=== PATIENT | male | born 1960 | race African-American/Black ===

== ENCOUNTER 2016-12-31 18:04 | Emergency (ER) | payer MEDICARE ==
[~2016-12-31 18:04] MED LIST: Iopamidol 370 76% 100 ML VIAL ONE
[2016-12-31 18:36] LABS: Blood, Urine Small (Negative); Clarity Clear (Clear); Glucose, Urine (Dipstick) Negative (Negative); Leukocyte Negative (Negative); Nitrite Negative (Negative); Protein, Urine (Dipstick) Trace mg/dL (Neg-Trace)
[2016-12-31 18:37] LABS: Bilirubin Negative (Negative)
[2016-12-31 18:46] LABS: Bacteria/HPF None Seen HPF (None Seen); Crystals/HPF 1+ AMORPH URATES HPF (Negative); RBC/HPF 0-3 HPF (0-3); Squamous Epithelial 0-3 HPF (0-3); WBC/HPF 0-3 HPF (0-3)
[2016-12-31 19:37] LABS: #Basophils 0.1 thou/uL (0.0-0.2); #Eosinphils 0.1 thou/uL (0.0-0.7); #Lymphocytes 2.1 thou/uL (1.20-3.40); #Monocytes 0.3 thou/uL (0.11-0.59); #Neutrophils 2.8 thou/uL (1.40-6.50); %Basophils 2.1 % (0.0-1.0); %Eosinophils 1.7 % (0.0-10.0); %Lymphocytes 38.8 % (21.0-51.0); %Monocytes 4.9 % (0.0-10.0); %Neutrophils 52.6 % (42.0-75.0); Hemoglobin 14.1 g/dL (14.0-18.0); Mean Corpuscular HGB CONC 35.2 g/dL (32.0-36.0); Mean Corpuscular Hemoglobin 28.7 pg (27.0-31.0); Mean Corpuscular Volume 81.4 fl (80.0-94.0); Mean Platelet Volume 7.1 fL (7.4-10.4); Platelet Count 325 thou/uL (130-400); RBC Distribution Width 12.7 % (11.5-14.5); Red Blood Cell (RBC) Count 4.92 mill/uL (4.70-6.10); White Blood Cell (WBC) Count 5.4 thou/uL (4.8-10.8)
[2016-12-31 19:46] LABS: ALT (SGPT) 96 U/L (8-55); AST (SGOT) 108 U/L (5-34); Albumin 4.1 g/dL (3.5-5.0); Alkaline Phosphatase 179 U/L (40-150); Anion Gap 18 mmol/L (10-20); BUN (Urea Nitrogen) 10 mg/dL (8.4-25.7); Bilirubin, Total 0.3 mg/dL (0.2-1.2); Calc. Creatinine Clearance 0 mL/min (70-130); Calcium 9.2 mg/dL (7.8-10.44); Carbon Dioxide 17 mmol/L (22-29); Chloride 91 mmol/L (98-107); Estimated GFR-MDRD Greater than 90; Globulin 3.7 g/dL (2.4-3.5); Glucose 71 mg/dL (70-105); Lipase 28 U/L (8-78); Potassium 4.2 mmol/L (3.5-5.1); Protein, Total 7.8 g/dL (6.0-8.3); Sodium 122 mmol/L (136-145)
[2016-12-31] MEDS ORDERED: Ketorolac Tromethamine 30 MG/ML VIAL ONE (19:50)
--- NOTE | 2016-12-31 21:34 | CT ---
CT ABDOMEN AND PELVIS WITH CONTRAST: Date: 12-31-[address] of the abdomen and pelvis was done after giving IV contrast. Oral contrast was withheld by request. Axial slices were acquired then coronal reconstructions were done. FINDINGS: The lung bases are clear. The liver and spleen are both normal in size. A subtle low density area in the medial part of the spleen on scan 19 is probably just due to artifact. The kidneys, adrenal gla nds, and pancreas appear normal. There has been a prior cholecystectomy. The abdominal aorta shows n o aneurysm. Fluid is seen in nondistended small bowel. There were no inflammatory changes around bowel or bowel wall thickening. There was no sign of diverticulitis or appendicitis. No free air or free fluid was seen. CT of the pelvis showed no pelvic masses, fluid collections or worrisome adenopathy. Some degenerati ve changes are present in the lumbar spine. IMPRESSION: Nondistended fluid filled loops of small bowel, a nonspecific finding. This could be the patient's n ormal but can also be seen in mild cases of gastroenteritis. The exam was otherwise unremarkable. POS: HOME
== END 2016-12-31 20:35 | disposition left against medical advice (07) ==
LOC: BURERS 18:04
DX: R10.12 Left upper quadrant pain (principal); R33.9 Retention of urine, unspecified; I10 Essential (primary) hypertension; K21.9 Gastro-esophageal reflux disease without esophagitis; E11.9 Type 2 diabetes mellitus without complications; J44.9 Chronic obstructive pulmonary disease, unspecified; F41.9 Anxiety disorder, unspecified; F17.210 Nicotine dependence, cigarettes, uncomplicated; F32.9 Major depressive disorder, single episode, unspecified
CPT/HCPCS: 36415; 51702; 74177; 80053; 81003; 81015; 83690; 85025; 87086; 96374; A4216; J1885

== ENCOUNTER 2017-03-07 07:44 | Emergency (ER) | payer MEDICARE ==
[2017-03-07] MEDS ORDERED: Ketorolac Tromethamine 30 MG/ML VIAL ONE (08:19)
[2017-03-07 08:43] LABS: Bilirubin Negative (Negative); Blood, Urine Small (Negative); Clarity Clear (Clear); Glucose, Urine (Dipstick) Negative (Negative); Leukocyte Negative (Negative); Nitrite Negative (Negative); Protein, Urine (Dipstick) Negative (Neg-Trace); Specific Gravity, Urine 1.015 (1.005-1.030); Urobilinogen 0.2 mg/dL (0.2-1.0); pH, Urine 6.5 (5.0-9.0)
[2017-03-07 08:51] LABS: Bacteria/HPF 1+ HPF (None Seen); RBC/HPF 0-3 HPF (0-3); Squamous Epithelial 0-3 HPF (0-3); WBC/HPF 0-3 HPF (0-3)
[2017-03-07 08:55] LABS: ALT (SGPT) 16 U/L (8-55); AST (SGOT) 14 U/L (5-34); Albumin 4.2 g/dL (3.5-5.0); Alkaline Phosphatase 149 U/L (40-150); Anion Gap 15 mmol/L (10-20); BUN (Urea Nitrogen) 5 mg/dL (8.4-25.7); Bilirubin, Total 0.3 mg/dL (0.2-1.2); Calc. Creatinine Clearance 0 mL/min (70-130); Calcium 9.5 mg/dL (7.8-10.44); Carbon Dioxide 21 mmol/L (22-29); Chloride 94 mmol/L (98-107); Estimated GFR-MDRD Greater than 90; Globulin 3.8 g/dL (2.4-3.5); Glucose 107 mg/dL (70-105); Lipase 27 U/L (8-78); Potassium 3.8 mmol/L (3.5-5.1); Sodium 126 mmol/L (136-145)
[2017-03-07 09:16] LABS: #Basophils 0.1 thou/uL (0.0-0.2); #Eosinphils 0.1 thou/uL (0.0-0.7); #Lymphocytes 2.1 thou/uL (1.20-3.40); #Monocytes 0.4 thou/uL (0.11-0.59); %Basophils 1.8 % (0.0-1.0); %Eosinophils 0.8 % (0.0-10.0); %Lymphocytes 32.2 % (21.0-51.0); %Monocytes 5.4 % (0.0-10.0); %Neutrophils 59.8 % (42.0-75.0); Hemoglobin 14.4 g/dL (14.0-18.0); Lymphocytes 28 % (21-51); MDiff Complete? YES; Mean Corpuscular HGB CONC 36.6 g/dL (32.0-36.0); Mean Corpuscular Hemoglobin 29.9 pg (27.0-31.0); Mean Corpuscular Volume 81.8 fl (80.0-94.0); Mean Platelet Volume 8.1 fL (7.4-10.4); Monocytes 10 % (0-10); Neutrophil 62 % (42-75); PLT Morphology Comment Appears Adequate; Platelet Count 333 thou/uL (130-400); RBC Distribution Width 14.4 % (11.5-14.5); RBC Morphology Normal; White Blood Cell (WBC) Count 6.6 thou/uL (4.8-10.8)
== END 2017-03-07 09:42 | disposition left against medical advice (07) ==
LOC: BURERS 07:44
DX: N39.0 Urinary tract infection, site not specified (principal); I10 Essential (primary) hypertension; K21.9 Gastro-esophageal reflux disease without esophagitis; E11.9 Type 2 diabetes mellitus without complications; J44.9 Chronic obstructive pulmonary disease, unspecified; F32.9 Major depressive disorder, single episode, unspecified; F17.210 Nicotine dependence, cigarettes, uncomplicated; Z79.899 Other long term (current) drug therapy; Z79.82 Long term (current) use of aspirin
CPT/HCPCS: 36415; 80053; 81003; 81015; 83690; 85025; 87086; 96361; 96374; J1885

== ENCOUNTER 2017-03-14 15:19 | Inpatient (IN) | payer MEDICARE ==
[2017-03-14] MEDS ORDERED: Ondansetron HCl/PF 4 MG/2 ML Vial ONE (15:45)
[2017-03-14] MEDS ORDERED: Ketorolac Tromethamine 30 MG/ML VIAL ONE (15:45)
[2017-03-14 16:27] LABS: Bilirubin Negative (Negative); Blood, Urine Trace (Negative); Clarity Clear (Clear); Glucose, Urine (Dipstick) Negative (Negative); Leukocyte Negative (Negative); Nitrite Negative (Negative); Protein, Urine (Dipstick) Negative (Neg-Trace); Urobilinogen 0.2 mg/dL (0.2-1.0)
[2017-03-14 16:28] LABS: Specific Gravity, Urine Less/Equal 1.005 (1.005-1.030)
[2017-03-14] MEDS ORDERED: Prochlorperazine 10 MG/2 ML VIAL ONE (16:45)
[2017-03-14 16:56] LABS: Bacteria/HPF None Seen HPF (None Seen); Crystals/HPF None Seen HPF (Negative); Hyaline Casts/LPF NONE SEEN LPF (0-3 Hyaline); Other Casts/LPF None Seen LPF (0-3 Hyaline); Oval Fat Bodies/HPF None Seen HPF (None Seen); RBC/HPF 0-3 HPF (0-3); Renal Epithelial None Seen HPF (0-3); Sperm/HPF None Seen HPF (None Seen); Squamous Epithelial None Seen HPF (0-3); Transitional Epithelial NONE SEEN HPF (0-3); Trichomonas/HPF None Seen HPF (None Seen); WBC/HPF None Seen HPF (0-3); Yeast-All Forms None Seen HPF (None Seen)
[2017-03-14 17:14] LABS: ALT (SGPT) 18 U/L (8-55); AST (SGOT) 20 U/L (5-34); Albumin 4.1 g/dL (3.5-5.0); Alkaline Phosphatase 167 U/L (40-150); Anion Gap 17 mmol/L (10-20); BUN (Urea Nitrogen) 5 mg/dL (8.4-25.7); Bilirubin, Total 0.5 mg/dL (0.2-1.2); Calc. Creatinine Clearance 0 mL/min (70-130); Calcium 9.4 mg/dL (7.8-10.44); Carbon Dioxide 19 mmol/L (22-29); Chloride 87 mmol/L (98-107); Estimated GFR-MDRD Greater than 90; Globulin 3.4 g/dL (2.4-3.5); Glucose 85 mg/dL (70-105); Lipase 65 U/L (8-78); Potassium 4.1 mmol/L (3.5-5.1); Protein, Total 7.5 g/dL (6.0-8.3)
[2017-03-14 17:31] LABS: Eosinophils 2 % (0-10); Lymphocytes 25 % (21-51); MDiff Complete? YES; Mean Corpuscular HGB CONC 34.9 g/dL (32.0-36.0); Mean Corpuscular Hemoglobin 28.8 pg (27.0-31.0); Mean Corpuscular Volume 82.4 fl (80.0-94.0); Mean Platelet Volume 6.8 fL (7.4-10.4); Monocytes 12 % (0-10); Neutrophil 61 % (42-75); Platelet Count 313 thou/uL (130-400); Red Blood Cell (RBC) Count 4.86 mill/uL (4.70-6.10); White Blood Cell (WBC) Count 8.1 thou/uL (4.8-10.8)
[2017-03-14 17:47] LABS: Sodium 122 mmol/L (136-145)
--- NOTE | 2017-03-14 18:23 | CT ---
CT ABDOMEN AND PELVIS WITH CONTRAST 03/14/17 Comparison is made with the 12/31/16 study. Axial slices were acquired after giving IV contrast. Coronal and sagittal reconstructions were then done. The findings on today's study are not tremendously different from before. There is some generalized mild dilation of some loops of small bowel. Some of the proximal small bowel is slightly thickened. The loops are fluid filled. The pattern and size of the loops do not suggest rolando obstruction. Ther e are no inflammatory changes around bowel loops. The colon does not show any thickening of loops or dilation. No free air or free fluid was seen. The liver, spleen, pancreas, adrenal glands, kidneys and abdominal aorta showed no acute findings. T here has been a prior cholecystectomy. CT of the pelvis showed no pelvic masses, inflammatory changes or free fluid. There was no evidence of diverticulitis or appendicitis. Degenerative changes are present in the spine. IMPRESSION: Once again, there are nonspecific findings in the small bowel which is more typical of enteritis flory n anything. There were no other findings of concern. POS: HOME
[2017-03-14] MEDS ORDERED: Ondansetron HCl/PF 4 MG/2 ML Vial SLOW IVP PRN (19:46)
[2017-03-14] MEDS ORDERED: Acetaminophen 325 MG TAB PO PRN (19:46)
[2017-03-14] MEDS: Sodium Chloride 0.9% 1,000 ML IV SCH (20:00)
[2017-03-14] MEDS ORDERED: PROVENTIL INHALER 6.7 G (200 INHALATIONS) INH PRN (20:23)
[2017-03-14] MEDS: Lorazepam 0.5 MG TAB PO SCH (21:10)
[2017-03-14] MEDS: CYPROHEPTADINE PO SCH (21:10)
[2017-03-14] MEDS: Pregabalin 50 MG CAP PO SCH (21:11)
[2017-03-15] MEDS: HYDROcodone/Acetaminophen 5/325 mg Tablet PO PRN ×3 (03:32→18:29)
[2017-03-15 05:16] LABS: #Basophils 0.1 thou/uL (0.0-0.2); #Eosinphils 0.1 thou/uL (0.0-0.7); #Lymphocytes 2.3 thou/uL (1.20-3.40); #Monocytes 0.6 thou/uL (0.11-0.59); #Neutrophils 3.5 thou/uL (1.40-6.50); %Basophils 2.1 % (0.0-1.0); %Eosinophils 1.8 % (0.0-10.0); %Lymphocytes 34.4 % (21.0-51.0); %Monocytes 8.8 % (0.0-10.0); %Neutrophils 52.9 % (42.0-75.0); Hemoglobin 13.1 g/dL (14.0-18.0); Mean Corpuscular HGB CONC 34.5 g/dL (32.0-36.0); Mean Corpuscular Hemoglobin 28.7 pg (27.0-31.0); Mean Corpuscular Volume 83.2 fl (80.0-94.0); Mean Platelet Volume 7.4 fL (7.4-10.4); Platelet Count 288 thou/uL (130-400); Red Blood Cell (RBC) Count 4.56 mill/uL (4.70-6.10); White Blood Cell (WBC) Count 6.6 thou/uL (4.8-10.8)
[2017-03-15 05:23] LABS: ALT (SGPT) 16 U/L (8-55); AST (SGOT) 16 U/L (5-34); Albumin 3.8 g/dL (3.5-5.0); Alkaline Phosphatase 146 U/L (40-150); Anion Gap 14 mmol/L (10-20); BUN (Urea Nitrogen) 6 mg/dL (8.4-25.7); Bilirubin, Total 0.7 mg/dL (0.2-1.2); Calc. Creatinine Clearance 132 mL/min (70-130); Calcium 8.7 mg/dL (7.8-10.44); Carbon Dioxide 17 mmol/L (22-29); Chloride 96 mmol/L (98-107); Estimated GFR-MDRD Greater than 90; Globulin 2.8 g/dL (2.4-3.5); Glucose 93 mg/dL (70-105); Potassium 4.1 mmol/L (3.5-5.1); Protein, Total 6.6 g/dL (6.0-8.3); Sodium 123 mmol/L (136-145)
[2017-03-15 05:26] VITALS: BMI 31.1
[2017-03-15] MEDS: Enoxaparin Sodium 30 MG/0.3 ML SYRINGE SC SCH (05:30)
[2017-03-15] MEDS: Sodium Chloride 0.9% 1,000 ML IV SCH ×2 (05:30→08:59)
--- NOTE | 2017-03-15 06:15 | HP ---
DATE OF ADMISSION: 03/14/2017 CHIEF COMPLAINT: Abdominal pain with nausea and vomiting. HISTORY OF PRESENT ILLNESS: A 56-year-old male who presented to [facility] with complaints of ongoing intractable nausea and vomiting with an inability to tolerate p.o. intake. He had watery diarrhea as well with intermittent symptoms over the last few days. He also reported to have accompanying abdominal pain located predominantly periumbilical. Subsequent lab evaluation revealed the patient to have notable hyponatremia. He attempted to intake p.o. fluids in the Emergency Department; however, notably had emesis quickly thereafter. It was thus decided to admit the patient for intravenous fluids in order to correct his electrolyte abnormalities and to treat his intractable nausea and vomiting. CT scan of the abdomen and pelvis was reassuring overall and his vitals are stable. PAST MEDICAL HISTORY: Bladder carcinoma in remission, status post chemo therapy , history of small bowel obstruction, gastroparesis, type 2 diabetes mellitus, irritable bowel syndrome, hypertension, anxiety, and depression. PAST SURGICAL HISTORY: Cholecystectomy, right shoulder rotator cuff repair, and excision of a sinus mass. SOCIAL HISTORY: Smokes half a pack of cigarettes daily, occasional marijuana use and alcohol use. FAMILY HISTORY: Includes hypertension, diabetes, and coronary artery disease. ALLERGIES: SULFA and PROMETHAZINE. CURRENT MEDICATIONS: Lyrica 50 mg p.o. t.i.d., Ativan 2 mg p.o. b.i.d., lisinopril 20 mg p.o. daily, Prozac 20 mg p.o. daily, Nexium 40 mg p.o. daily, Cyproheptadine 3 mL p.o. b.i.d., amlodipine 5 mg p.o. b.i.d prn, albuterol sulfate 2 puffs q.6 hours p.r.n. REVIEW OF SYSTEMS: General: Denies fever. Ear, Nose, and Throat: Denies sore throat, nasal drainage or congestion. Cardiovascular: Denies chest pain or palpitations. Respiratory: Denies shortness of breath or cough. Gastrointestinal: Complains of abdominal pain, nausea, vomiting and diarrhea. Denies constipation, melena or hematochezia. Genitourinary: Denies dysuria, frequency or urgency. Musculoskeletal: Denies joint swelling. Dermatologic: Denies rash. Neurologic: Denies headache. LABORATORY AND DIAGNOSTIC DATA: White blood cell count 8.1, H\T\H is 14 and 40.1, and platelets 313,000. Sodium 122, potassium 4.1, BUN 5, and creatinine is 0.81. GFR is 90. Glucose is 85, lipase 65. Normal LFTs. CT of the abdomen and pelvis showed nonspecific findings in the small bowel which is more typical enteritis than anything. No other findings of concern. PHYSICAL EXAMINATION: VITAL SIGNS: Temperature is 99.2, pulse is 81, respiratory rate is 18, and oxygen is 100% on room air. GENERAL: The patient is alert and oriented, in no acute distress. HEENT: Normocephalic and atraumatic. Extraocular muscles are intact. Sclerae and conjunctivae are normal. Pupils are equal, round, and reactive to light. NECK: Supple, with no lymphadenopathy, no meningeal signs. RESPIRATORY: Clear to auscultation bilaterally without wheezes, rales or rhonchi. CARDIAC: Regular rate and rhythm, no murmurs, rubs or gallops. ABDOMEN: Mild tenderness to palpation centrally with no rebound or guarding. SKIN: No rashes or lesions. EXTREMITIES: No clubbing, cyanosis or edema. NEUROLOGICAL: Nonfocal. Cranial nerves II-XII are grossly intact. ASSESSMENT AND PLAN: 1. Hypovolemic hyponatremia. We will continue the patient on normal saline, intravenous fluids at 100 mL an hour overnight, repeat metabolic panel in the morning. 2. Gastroenteritis with intractable nausea, vomiting. We will provide Zofran p.r.n. and advance diet as tolerated. Start probiotic for associated diarrhea. 3. Hypertension. The patient is hemodynamically stable. We will continue home blood pressure medications and follow vitals. 4. Anxiety and depression. We will continue home medications. 5. Prophylaxis. We will provide Lovenox and continue proton pump inhibitor. MTDD
[2017-03-15] MEDS: CYPROHEPTADINE PO SCH ×2 (09:00→20:56)
[2017-03-15] MEDS: Pregabalin 50 MG CAP PO SCH ×3 (09:01→20:50)
[2017-03-15] MEDS: FLUoxetine HCl 10 MG CAP PO SCH (09:01)
[2017-03-15] MEDS: Lorazepam 0.5 MG TAB PO SCH ×2 (09:02→20:49)
[2017-03-15] MEDS: Lisinopril 20 MG TAB PO SCH (09:02)
[2017-03-15] MEDS: Saccharomyces boulardii 250 MG CAP PO SCH (09:03)
[2017-03-15] MEDS: Ondansetron ODT 4 MG TAB PO PRN ×2 (11:13→18:30)
[2017-03-16] MEDS: Sodium Chloride 0.9% 1,000 ML IV SCH (00:27)
[2017-03-16] MEDS: Ondansetron ODT 4 MG TAB PO PRN (02:07)
[2017-03-16] MEDS: HYDROcodone/Acetaminophen 5/325 mg Tablet PO PRN ×2 (02:07→08:42)
[2017-03-16] MEDS: Enoxaparin Sodium 30 MG/0.3 ML SYRINGE SC SCH (05:25)
[2017-03-16 05:50] LABS: Anion Gap 12 mmol/L (10-20); BUN (Urea Nitrogen) Less than 4 mg/dL (8.4-25.7); Calcium 8.8 mg/dL (7.8-10.44); Carbon Dioxide 18 mmol/L (22-29); Chloride 107 mmol/L (98-107); Glucose 116 mg/dL (70-105); Potassium 4.3 mmol/L (3.5-5.1); Sodium 133 mmol/L (136-145)
[2017-03-16 06:24] VITALS: BP 140/88; TEMP 98.1
[2017-03-16 06:24] LABS: Calc. Creatinine Clearance 120 mL/min (70-130); Estimated GFR-MDRD Greater than 90
[2017-03-16] MEDS ORDERED: Lorazepam 0.5 MG TAB ONE (08:17)
[2017-03-16] MEDS: FLUoxetine HCl 10 MG CAP PO SCH (08:38)
[2017-03-16] MEDS: Lisinopril 20 MG TAB PO SCH (08:39)
[2017-03-16] MEDS: Lorazepam 0.5 MG TAB PO SCH (08:39)
[2017-03-16] MEDS: CYPROHEPTADINE PO SCH (08:40)
[2017-03-16] MEDS: Pregabalin 50 MG CAP PO SCH (08:40)
[2017-03-16] MEDS: Saccharomyces boulardii 250 MG CAP PO SCH (08:40)
--- NOTE | 2017-03-16 20:17 | DIS ---
DATE OF ADMISSION: 03/14/2017 DATE OF DISCHARGE: 03/16/2017 ADMISSION DIAGNOSES: Hypovolemic hyponatremia; gastroenteritis with intractable nausea, vomiting; h ypertension; anxiety; depression. DISCHARGE DIAGNOSES: Hyponatremia, resolved; gastroenteritis, resolved; hypertension; anxiety; depr ession. PROCEDURES: Patient had abdomen and pelvis CT on 03/14/2017 showing nonspecific findings in the sma ll bowel which is more typical of enteritis than anything. No other findings of concern. HOSPITAL COURSE: A 56-year-old male with a complicated past abdominal history including small-bowel obstruction, irritable bowel syndrome, gastroparesis, who presented to [facility] with symptoms of gastroenteritis including nausea, vomiting, and diarrhea. He subsequently had po or p.o. intake and was discovered to be hyponatremic, with a sodium level of 123. He was admitted f or IV fluid hydration with normal saline, which improved his sodium level up to 133. His diet was i ncreased from n.p.o. to clear liquids to regular diet, which he tolerated well with noted cessation of his GI symptoms. The patient is currently at his baseline as far as how he feels and his intake and output with a stabilized sodium level and thus will be discharged back to his home setting. Of note, this is a patient who has seen Dr. Munoz previously; however, he told the [facility] physician that his primary care provider was in [place]. DISPOSITION: The patient will be discharged to his home and may follow up with Dr. Munoz or trevor dugan or his supposed primary care provider in [place] within a week. DISCHARGE MEDICATIONS: We will continue his home medications which include lorazepam 2 mg p.o. b.i. d., lisinopril 20 mg p.o. daily, Lyrica 50 mg p.o. t.i.d., fluoxetine 20 mg p.o. daily, Nexium 40 mg p.o. daily, cyproheptadine 3 mL p.o. b.i.d., albuterol two puffs q.6 hours p.r.n. and amlodipine 5 mg p.o. b.i.d. p.r.n.
== END 2017-03-16 11:45 | disposition home or self-care (01) | DRG 641 ==
LOC: BURERS 15:19 → BURMED 18:46
PROVIDERS: ADMIT Family Medicine; ATTEND Family Medicine
DX: E87.1 Hypo-osmolality and hyponatremia (principal); I10 Essential (primary) hypertension; F41.9 Anxiety disorder, unspecified; F32.9 Major depressive disorder, single episode, unspecified; K52.9 Noninfective gastroenteritis and colitis, unspecified
CPT/HCPCS: 36415; 74177; 80048; 80053; 81003; 81015; 83690; 84300; 85025; 96361; 96374; 96375; A4216; J0780; J1650; J1885; J2405; Q0162

== ENCOUNTER 2017-03-23 11:48 | Outpatient (CLI) | payer MEDICARE ==
[2017-03-23 12:44] LABS: #Basophils 0.1 thou/uL (0.0-0.2); #Lymphocytes 2.1 thou/uL (1.20-3.40); #Monocytes 0.7 thou/uL (0.11-0.59); #Neutrophils 3.9 thou/uL (1.40-6.50); %Basophils 2.1 % (0.0-1.0); %Eosinophils 0.7 % (0.0-10.0); %Lymphocytes 30.6 % (21.0-51.0); %Monocytes 9.9 % (0.0-10.0); %Neutrophils 56.7 % (42.0-75.0); Hemoglobin 13.9 g/dL (14.0-18.0); Mean Corpuscular HGB CONC 34.1 g/dL (32.0-36.0); Mean Corpuscular Hemoglobin 28.9 pg (27.0-31.0); Mean Corpuscular Volume 84.6 fl (80.0-94.0); Platelet Count 271 thou/uL (130-400); RBC Distribution Width 14.2 % (11.5-14.5); Red Blood Cell (RBC) Count 4.82 mill/uL (4.70-6.10); White Blood Cell (WBC) Count 6.8 thou/uL (4.8-10.8)
[2017-03-23 13:07] LABS: ALT (SGPT) 14 U/L (8-55); AST (SGOT) 13 U/L (5-34); Albumin 4.5 g/dL (3.5-5.0); Alkaline Phosphatase 131 U/L (40-150); Anion Gap 14 mmol/L (10-20); BUN (Urea Nitrogen) 10 mg/dL (8.4-25.7); Bilirubin, Total 0.4 mg/dL (0.2-1.2); Calc. Creatinine Clearance 0 mL/min (70-130); Calcium 9.4 mg/dL (7.8-10.44); Carbon Dioxide 23 mmol/L (22-29); Chloride 89 mmol/L (98-107); Estimated GFR-MDRD Greater than 90; Globulin 3.4 g/dL (2.4-3.5); Glucose 91 mg/dL (70-105); Potassium 4.6 mmol/L (3.5-5.1); Protein, Total 7.9 g/dL (6.0-8.3); Sodium 121 mmol/L (136-145)
[2017-03-23 13:09] LABS: Hemoglobin A1c 5.5 % (4.0-6.0)
== END 2017-03-23 11:49 | disposition home or self-care (01) ==
LOC: HPCALD 11:48
PROVIDERS: ATTEND Family Medicine
DX: E87.1 Hypo-osmolality and hyponatremia (principal); E11.9 Type 2 diabetes mellitus without complications; I10 Essential (primary) hypertension
CPT/HCPCS: 36415; 80053; 83036; 85025

== ENCOUNTER 2017-03-29 12:58 | Emergency (ER) | payer MEDICARE | END 2017-03-29 13:26 | disposition home or self-care (01) | LOC: BURERS 12:58 | DX: R10.32 Left lower quadrant pain (principal); I10 Essential (primary) hypertension; K21.9 Gastro-esophageal reflux disease without esophagitis; E11.9 Type 2 diabetes mellitus without complications; J44.9 Chronic obstructive pulmonary disease, unspecified; F17.210 Nicotine dependence, cigarettes, uncomplicated; Z79.82 Long term (current) use of aspirin; Z79.899 Other long term (current) drug therapy | CPT/HCPCS: 99284 ==

== ENCOUNTER 2017-04-20 11:40 | Outpatient (CLI) | payer MEDICARE ==
[2017-04-20 12:55] LABS: Hemoglobin 13.9 g/dL (14.0-18.0)
[2017-04-20 13:15] LABS: Anion Gap 17 mmol/L (10-20); BUN (Urea Nitrogen) 17 mg/dL (8.4-25.7); Calc. Creatinine Clearance 0 mL/min (70-130); Calcium 9.6 mg/dL (7.8-10.44); Chloride 98 mmol/L (98-107); Estimated GFR-MDRD 85; Glucose 107 mg/dL (70-105); Potassium 4.4 mmol/L (3.5-5.1); Sodium 129 mmol/L (136-145)
[2017-04-20 13:28] LABS: Carbon Dioxide 18 mmol/L (22-29)
== END 2017-04-20 11:41 | disposition home or self-care (01) ==
LOC: BURLAB 11:40
PROVIDERS: ATTEND Internal Medicine Nephrology
DX: N18.2 Chronic kidney disease, stage 2 (mild) (principal); D63.1 Anemia in chronic kidney disease
CPT/HCPCS: 36415; 80048; 85014; 85018

== ENCOUNTER 2017-07-25 15:23 | Emergency (ER) | payer MEDICARE ==
[2017-07-25 15:56] LABS: #Basophils 0.2 thou/uL (0.0-0.2); #Lymphocytes 3.3 thou/uL (1.20-3.40); #Monocytes 1.8 thou/uL (0.11-0.59); #Neutrophils 10.2 thou/uL (1.40-6.50); %Basophils 1.3 % (0.0-1.0); %Eosinophils 0.1 % (0.0-10.0); %Lymphocytes 21.3 % (21.0-51.0); %Monocytes 11.4 % (0.0-10.0); %Neutrophils 65.9 % (42.0-75.0); Hemoglobin 15.5 g/dL (14.0-18.0); Mean Corpuscular HGB CONC 34.1 g/dL (32.0-36.0); Mean Corpuscular Hemoglobin 29.5 pg (27.0-31.0); Mean Corpuscular Volume 86.5 fl (80.0-94.0); Mean Platelet Volume 8.4 fL (7.4-10.4); Platelet Count 190 thou/uL (130-400); RBC Distribution Width 13.9 % (11.5-14.5); Red Blood Cell (RBC) Count 5.27 mill/uL (4.70-6.10); White Blood Cell (WBC) Count 15.5 thou/uL (4.8-10.8)
[2017-07-25] MEDS ORDERED: Adacel (T-DAP) 0.5 ML VIAL ONE (16:21)
[2017-07-25] MEDS ORDERED: Fluorescein Opthalmic Strip ONE (16:27)
[2017-07-25] MEDS ORDERED: Azithromycin 250 MG TAB ONE (16:58)
[2017-07-25 17:00] LABS: Potassium 5.5 mmol/L (3.5-5.1)
[2017-07-25] MEDS ORDERED: HYDROcodone/Acetaminophen 5/325 mg Tablet ONE (17:00)
[2017-07-25 17:03] LABS: ALT (SGPT) 15 U/L (8-55); AST (SGOT) 37 U/L (5-34); Albumin 4.3 g/dL (3.5-5.0); Alkaline Phosphatase 128 U/L (40-150); Anion Gap 21 mmol/L (10-20); BUN (Urea Nitrogen) 8 mg/dL (8.4-25.7); Bilirubin, Total 0.5 mg/dL (0.2-1.2); Calc. Creatinine Clearance 0 mL/min (70-130); Calcium 9.4 mg/dL (7.8-10.44); Carbon Dioxide 17 mmol/L (22-29); Chloride 101 mmol/L (98-107); Estimated GFR-MDRD 74; Globulin 4.7 g/dL (2.4-3.5); Glucose 134 mg/dL (70-105); Sodium 133 mmol/L (136-145)
[2017-07-25 17:17] LABS: Bilirubin Negative (Negative); Blood, Urine Small (Negative); Clarity Clear (Clear); Glucose, Urine (Dipstick) Negative (Negative); Leukocyte Negative (Negative); Nitrite Negative (Negative); Protein, Urine (Dipstick) Trace mg/dL (Neg-Trace); Urobilinogen 0.2 mg/dL (0.2-1.0)
[2017-07-25 17:22] LABS: RBC/HPF 0-3 HPF (0-3); Squamous Epithelial 0-3 HPF (0-3); WBC/HPF 0-3 HPF (0-3)
[2017-07-25 17:23] LABS: Bacteria/HPF Rare-Few HPF (None Seen)
[2017-07-25 17:26] LABS: Amphetamine Not Detected (NotDetected); Barbiturates Screen Not Detected (NotDetected); Benzodiazepine Screen Detected (NotDetected); Cocaine Metabolite Screen Detected (NotDetected); Medtox Control Line Valid? VALID (VALID); Methadone Not Detected (NotDetected); Methamphetamine Detected (NotDetected); Opiate Screen Not Detected (NotDetected); Oxycodone Screen Not Detected (NotDetected); Phencyclidine (PCP) Not Detected (NotDetected); THC/Cannabinoid Screen Detected (NotDetected); Tricyclic Screen Not Detected (NotDetected)
--- NOTE | 2017-07-25 21:34 | RAD ---
RIGHT KNEE THREE VIEWS 07/25/17 No fracture was seen. There may be a small joint effusion. The articular surfaces are smooth and the joint space is normal in width. IMPRESSION: Possible small joint effusion. POS: HOME
--- NOTE | 2017-07-25 21:47 | CT ---
CT OF THE BRAIN WITHOUT CONTRAST 07/25/[address] was done and compared with the 02/11/15 study. The ventricles are normal in size with no shift. No intracranial bleeding or extra-axial hematoma was seen. There is no sign of mass, stroke, or edema. The calvarium appears intact. There is no air flui d level in the sphenoid sinus. There has been no adverse change since the prior CT dated 02/11/15. IMPRESSION: No acute intracranial finding. POS: HOME
--- NOTE | 2017-07-25 21:52 | CT ---
CT OF THE FACIAL BONES 07/25/[address] of the face was done following trauma. Axial slices were acquired, then coronal and sagitta l reconstructions were done. No major fractures were evident. There are some lines at the base of the nasal bones that could be ve ry tiny nondisplaced fractures. There does appear to be some swelling of the nasal septum anteriorly. There is a little fragmentation of the anterior maxillary spine which may or may not be acute. The o rbital rims and zygomatic arches appear intact. There is no major air fluid level in any of the sinus es. There is a small soft tissue elevation in the floor of the left maxillary sinus that could be rogelio e focal mucosal thickening or even a small polyp. The retro-orbital areas appear normal. Some soft ti ssue swelling is suggested just lateral to the right orbit. IMPRESSION: Septal soft tissue swelling anteriorly. Possible minimal nasal fractures. No major facial fracture. POS: HOME
--- NOTE | 2017-07-25 21:56 | RAD ---
RIGHT HAND THREE VIEWS 07/25/17 No major acute fracture was appreciated. There is some bony fragmentation along the lateral aspect of the joint between the hamate and medial to the base of the fifth metacarpal. This appears to be due to an old injury. A small bogdan of bone is seen just lateral to the trapezium that appears old as wel l. The metacarpals and carpal bones appear intact. IMPRESSION: No acute traumatic findings. POS: HOME
--- NOTE | 2017-07-25 21:59 | RAD ---
RIGHT SHOULDER THREE VIEWS 07/25/17 Comparison is made with an 03/21/16 chest x-ray. There is fragmentation of the lateral tip of the acro mion process that is not seen on the 2016 chest x-ray. Thus there has been trauma here since that rosario e, though the margins of the bones in the vicinity suggests this is more likely old or subacute than an acute injury. There is no widening of the AC joint. There is no dislocation of the shoulder. IMPRESSION: Fragmentation of the lateral aspect of the acromion which appears to be posttraumatic in nature. This may not be acute, however. Correlate with clinical exam. POS: HOME
== END 2017-07-25 17:28 | disposition home or self-care (01) ==
LOC: BURERS 15:23
DX: S02.2XXA Fracture of nasal bones, initial encounter for closed fracture (principal); S43.101A Unspecified dislocation of right acromioclavicular joint, initial encounter; S00.83XA Contusion of other part of head, initial encounter; I10 Essential (primary) hypertension; K21.9 Gastro-esophageal reflux disease without esophagitis; K58.9 Irritable bowel syndrome, unspecified; J44.9 Chronic obstructive pulmonary disease, unspecified; E11.9 Type 2 diabetes mellitus without complications; F32.9 Major depressive disorder, single episode, unspecified; F17.210 Nicotine dependence, cigarettes, uncomplicated; X95.8XXA Assault by other firearm discharge, initial encounter
CPT/HCPCS: 70450; 70486; 80053; 80306; 81003; 81015; 85025; 90471; 90715

== ENCOUNTER 2017-08-19 13:58 | Emergency (ER) | payer MEDICARE ==
[2017-08-19] MEDS ORDERED: Nitroglycerin 50 MG/250 ML BOT 250 ML ONE (14:32)
[2017-08-19] MEDS ORDERED: Ondansetron HCl/PF 4 MG/2 ML Vial ONE (14:32)
[2017-08-19] MEDS ORDERED: Metoprolol Tartrate 5 MG/5 ML VIAL ONE ×3 (14:32→15:40)
[2017-08-19] MEDS ORDERED: Acetaminophen 500 MG TAB ONE (14:39)
[2017-08-19 14:52] LABS: ALT (SGPT) 21 U/L (8-55); AST (SGOT) 19 U/L (5-34); Albumin 4.3 g/dL (3.5-5.0); Alkaline Phosphatase 156 U/L (40-150); Anion Gap 20 mmol/L (10-20); BUN (Urea Nitrogen) 13 mg/dL (8.4-25.7); Bilirubin, Total 0.4 mg/dL (0.2-1.2); Calc. Creatinine Clearance 0 mL/min (70-130); Calcium 9.8 mg/dL (7.8-10.44); Carbon Dioxide 18 mmol/L (22-29); Chloride 99 mmol/L (98-107); Estimated GFR-MDRD 66; Globulin 4.1 g/dL (2.4-3.5); Glucose 109 mg/dL (70-105); Lipase 27 U/L (8-78); Potassium 3.7 mmol/L (3.5-5.1); Protein, Total 8.4 g/dL (6.0-8.3); Sodium 133 mmol/L (136-145)
[2017-08-19 14:53] LABS: #Basophils 0.3 thou/uL (0.0-0.2); #Lymphocytes 2.9 thou/uL (1.20-3.40); #Monocytes 1.9 thou/uL (0.11-0.59); #Neutrophils 8.9 thou/uL (1.40-6.50); %Basophils 1.9 % (0.0-1.0); %Eosinophils 0.1 % (0.0-10.0); %Lymphocytes 20.7 % (21.0-51.0); %Monocytes 13.5 % (0.0-10.0); %Neutrophils 63.8 % (42.0-75.0); Band 8 % (5-11); CKMB 0.4 ng/mL (0-6.6); Hemoglobin 15.7 g/dL (14.0-18.0); Lymphocytes 14 % (21-51); MDiff Complete? YES; Mean Corpuscular HGB CONC 35.7 g/dL (32.0-36.0); Mean Corpuscular Hemoglobin 30.1 pg (27.0-31.0); Mean Corpuscular Volume 84.2 fl (80.0-94.0); Mean Platelet Volume 8.7 fL (7.4-10.4); Monocytes 17 % (0-10); Neutrophil 60 % (42-75); Platelet Count 210 thou/uL (130-400); RBC Distribution Width 12.5 % (11.5-14.5); Red Blood Cell (RBC) Count 5.22 mill/uL (4.70-6.10); Troponin I Less than 0.010 ng/mL (< 0.028)
[2017-08-19] MEDS ORDERED: Oseltamivir 75 MG CAP ONE (15:41)
[2017-08-19] MEDS ORDERED: Fentanyl 100 MCG/2 ML VIAL ONE (15:50)
--- NOTE | 2017-08-19 17:30 | RAD ---
PORTABLE CHEST: Date: 08/19/17 An AP portable film at 1610 hours is compared with the 03/23/17 study. FINDINGS: The heart is normal in size. There is no vascular congestion, edema, or pleural effusion. The lungs a re clear. There is no definite sign of pneumonia. The medial left base is not seen as well as other s ections, however. IMPRESSION: No acute findings. POS: HOME
== END 2017-08-19 17:00 | disposition short-term general hospital (02) ==
LOC: BURERS 13:58
DX: I16.1 Hypertensive emergency (principal); J11.1 Influenza due to unidentified influenza virus with other respiratory manifestations; R07.89 Other chest pain; I10 Essential (primary) hypertension; K21.9 Gastro-esophageal reflux disease without esophagitis; K58.9 Irritable bowel syndrome, unspecified; E11.9 Type 2 diabetes mellitus without complications; J44.9 Chronic obstructive pulmonary disease, unspecified; F32.9 Major depressive disorder, single episode, unspecified; F17.210 Nicotine dependence, cigarettes, uncomplicated; Z85.51 Personal history of malignant neoplasm of bladder; Z79.899 Other long term (current) drug therapy
CPT/HCPCS: 71045; 80053; 82553; 83605; 83690; 83880; 84484; 85025; 87040; 93005; 94760; 96365; 96366; 96375; 96376; J2405; J3010

== ENCOUNTER 2017-12-06 13:26 | Emergency (ER) | payer MEDICARE ==
[2017-12-06] MEDS ORDERED: Nitroglycerin 2% Ointment 1 INCH/1 GM Packet ONE (13:44)
[2017-12-06] MEDS ORDERED: Ondansetron HCl/PF 4 MG/2 ML Vial ONE (13:44)
[2017-12-06 14:00] LABS: #Basophils 0.1 thou/uL (0.0-0.2); #Lymphocytes 2.5 thou/uL (1.20-3.40); #Monocytes 0.5 thou/uL (0.11-0.59); #Neutrophils 2.7 thou/uL (1.40-6.50); %Basophils 1.5 % (0.0-1.0); %Eosinophils 0.8 % (0.0-10.0); %Lymphocytes 42.5 % (21.0-51.0); %Neutrophils 46.1 % (42.0-75.0); Hemoglobin 13.9 g/dL (14.0-18.0); Mean Corpuscular HGB CONC 35.9 g/dL (32.0-36.0); Mean Corpuscular Hemoglobin 29.6 pg (27.0-31.0); Mean Corpuscular Volume 82.5 fl (80.0-94.0); Mean Platelet Volume 6.7 fL (7.4-10.4); Platelet Count 196 thou/uL (130-400); RBC Distribution Width 13.2 % (11.5-14.5); White Blood Cell (WBC) Count 5.8 thou/uL (4.8-10.8)
[2017-12-06 14:20] LABS: ALT (SGPT) 17 U/L (8-55); AST (SGOT) 16 U/L (5-34); Albumin 4.2 g/dL (3.5-5.0); Alkaline Phosphatase 87 U/L (40-150); Anion Gap 19 mmol/L (10-20); BUN (Urea Nitrogen) 10 mg/dL (8.4-25.7); Bilirubin, Total 0.4 mg/dL (0.2-1.2); CKMB 0.9 ng/mL (0-6.6); Calc. Creatinine Clearance 0 mL/min (70-130); Calcium 9.3 mg/dL (7.8-10.44); Carbon Dioxide 19 mmol/L (22-29); Chloride 103 mmol/L (98-107); Estimated GFR-MDRD Greater than 90; Globulin 2.8 g/dL (2.4-3.5); Glucose 95 mg/dL (70-105); Lipase 42 U/L (8-78); Potassium 3.7 mmol/L (3.5-5.1); Sodium 137 mmol/L (136-145); Troponin I Less than 0.010 ng/mL (< 0.028)
[2017-12-06] MEDS ORDERED: Famotidine In NaCl 20 mg/50 ml Premix Bag ONE (14:25)
[2017-12-06 14:44] LABS: Clarity Clear (Clear); Glucose, Urine (Dipstick) Negative (Negative); Leukocyte Negative (Negative); Nitrite Negative (Negative); Protein, Urine (Dipstick) Negative (Neg-Trace); Specific Gravity, Urine 1.015 (1.005-1.030)
[2017-12-06 14:45] LABS: Bilirubin Negative (Negative); Blood, Urine Negative (Negative); Urobilinogen 0.2 mg/dL (0.2-1.0)
[2017-12-06] MEDS ORDERED: Lorazepam 0.5 MG TAB ONE (15:22)
--- NOTE | 2017-12-06 21:07 | RAD ---
PORTABLE CHEST: 12/06/17 An AP portable film at 1340 is compared with a 08/19/17 study. The heart is normal in size. Median sternotomy sutures are seen as usual. The lungs are clear. There is no vascular congestion, edema, or pleural effusion. IMPRESSION: No acute finding. POS: HOME
== END 2017-12-06 15:31 | disposition home or self-care (01) ==
LOC: BURERS 13:26
DX: R10.13 Epigastric pain (principal); R11.2 Nausea with vomiting, unspecified; R19.7 Diarrhea, unspecified; I10 Essential (primary) hypertension; K21.9 Gastro-esophageal reflux disease without esophagitis; E11.9 Type 2 diabetes mellitus without complications; J44.9 Chronic obstructive pulmonary disease, unspecified; F32.9 Major depressive disorder, single episode, unspecified; F17.210 Nicotine dependence, cigarettes, uncomplicated
CPT/HCPCS: 36415; 71045; 80053; 81003; 82553; 83690; 84484; 85025; 93005; 94760; 96361; 96365; 96375; J2405

== ENCOUNTER 2018-03-05 05:30 | Emergency (ER) | payer MEDICARE ==
[2018-03-05] MEDS ORDERED: Mag-Al Plus 1200 MG/1200 MG/120 MG/30 ML UDCUP ONE ×2 (05:57→05:58)
[2018-03-05] MEDS ORDERED: Lidocaine Viscous Sol 2% 15 ml UD Cup ONE (05:57)
[2018-03-05] MEDS ORDERED: Ketorolac Tromethamine 60 MG/2 ML VIAL ONE (05:57)
[2018-03-05] MEDS ORDERED: Dicyclomine 20 MG TAB ONE (05:59)
[2018-03-05 06:32] LABS: ALT (SGPT) 17 U/L (8-55); AST (SGOT) 17 U/L (5-34); Albumin 4.1 g/dL (3.5-5.0); Alkaline Phosphatase 129 U/L (40-150); Anion Gap 15 mmol/L (10-20); BUN (Urea Nitrogen) 6 mg/dL (8.4-25.7); Bilirubin, Total 0.6 mg/dL (0.2-1.2); Calc. Creatinine Clearance 0 mL/min (70-130); Calcium 9.6 mg/dL (7.8-10.44); Carbon Dioxide 20 mmol/L (22-29); Chloride 101 mmol/L (98-107); Estimated GFR-MDRD Greater than 90; Globulin 3.1 g/dL (2.4-3.5); Glucose 103 mg/dL (70-105); Lipase 43 U/L (8-78); Potassium 3.7 mmol/L (3.5-5.1); Protein, Total 7.2 g/dL (6.0-8.3); Sodium 132 mmol/L (136-145)
[2018-03-05 06:34] LABS: CKMB 1.1 ng/mL (0-6.6); Troponin I Less than 0.010 ng/mL (< 0.028)
[2018-03-05] MEDS ORDERED: Ibuprofen 200 MG TAB ONE (06:37)
[2018-03-05 06:55] LABS: Hemoglobin 15.3 g/dL (14.0-18.0); Mean Corpuscular HGB CONC 36.8 g/dL (32.0-36.0); Mean Corpuscular Hemoglobin 28.3 pg (27.0-31.0); Mean Corpuscular Volume 76.9 fL (78.0-98.0); Platelet Count 208 thou/uL (130-400); RBC Distribution Width 11.4 % (11.5-14.5); Red Blood Cell (RBC) Count 5.43 mill/uL (4.70-6.10); White Blood Cell (WBC) Count 5.1 thou/uL (4.8-10.8)
[2018-03-05 07:12] LABS: Lymphocytes 54 % (21-51); MDiff Complete? YES; Monocytes 19 % (0-10); Neutrophil 27 % (42-75); PLT Morphology Comment Appears Adequate; RBC Morphology Normal
== END 2018-03-05 06:58 | disposition left against medical advice (07) ==
LOC: BURERS 05:30
DX: R10.32 Left lower quadrant pain (principal); I10 Essential (primary) hypertension; E11.9 Type 2 diabetes mellitus without complications; F32.9 Major depressive disorder, single episode, unspecified; F17.210 Nicotine dependence, cigarettes, uncomplicated; K21.9 Gastro-esophageal reflux disease without esophagitis; Z79.899 Other long term (current) drug therapy
CPT/HCPCS: 80053; 82553; 83605; 83690; 84484; 85025; 93005; J1885

== ENCOUNTER 2018-04-14 20:37 | Emergency (ER) | payer MEDICARE ==
[2018-04-14] MEDS ORDERED: Pantoprazole 40 MG VIAL ONE (21:12)
[2018-04-14] MEDS ORDERED: diphenhydrAMINE 50 MG/ML VIAL ONE (21:12)
--- NOTE | 2018-04-14 21:18 | RAD ---
PORTABLE CHEST: HISTORY: Dyspnea. COMPARISON: 12/06/2017 FINDINGS: Heart size is within normal limits. There are postop sternotomy changes. The lungs are clear of inf iltrates. There are no signs of failure. IMPRESSION: No active intrathoracic disease. POS: [facility]
[2018-04-14 21:26] LABS: ALT (SGPT) 30 U/L (8-55); AST (SGOT) 19 U/L (5-34); Albumin 4.1 g/dL (3.5-5.0); Alkaline Phosphatase 111 U/L (40-150); Anion Gap 13 mmol/L (10-20); BUN (Urea Nitrogen) 9 mg/dL (8.4-25.7); Bilirubin, Total Less than 0.2 mg/dL (0.2-1.2); Calc. Creatinine Clearance 0 mL/min (70-130); Calcium 9.3 mg/dL (7.8-10.44); Carbon Dioxide 22 mmol/L (22-29); Chloride 103 mmol/L (98-107); Estimated GFR-MDRD 65; Globulin 2.6 g/dL (2.4-3.5); Glucose 105 mg/dL (70-105); Potassium 3.7 mmol/L (3.5-5.1); Protein, Total 6.7 g/dL (6.0-8.3); Sodium 134 mmol/L (136-145)
[2018-04-14 21:28] LABS: CKMB 0.8 ng/mL (0-6.6); Troponin I Less than 0.010 ng/mL (< 0.028)
[2018-04-14 21:37] LABS: Band 3 % (5-11); Eosinophils 1 % (0-10); Hemoglobin 14.5 g/dL (14.0-18.0); Lymphocytes 47 % (21-51); MDiff Complete? YES; Mean Corpuscular HGB CONC 32.8 g/dL (32.0-36.0); Mean Corpuscular Hemoglobin 27.7 pg (27.0-31.0); Mean Corpuscular Volume 84.3 fL (78.0-98.0); Mean Platelet Volume 9.7 fL (7.4-10.4); Monocytes 7 % (0-10); Neutrophil 41 % (42-75); PLT Morphology Comment Appears Adequate; Platelet Count 208 thou/uL (130-400); RBC Distribution Width 12.8 % (11.5-14.5); RBC Morphology Normal; Red Blood Cell (RBC) Count 5.23 mill/uL (4.70-6.10); White Blood Cell (WBC) Count 8.2 thou/uL (4.8-10.8)
== END 2018-04-14 21:42 | disposition home or self-care (01) ==
LOC: BURERS 20:37
DX: F41.9 Anxiety disorder, unspecified (principal); I10 Essential (primary) hypertension; K21.9 Gastro-esophageal reflux disease without esophagitis; E11.9 Type 2 diabetes mellitus without complications; J44.9 Chronic obstructive pulmonary disease, unspecified; F32.9 Major depressive disorder, single episode, unspecified; F17.210 Nicotine dependence, cigarettes, uncomplicated; Z79.899 Other long term (current) drug therapy
CPT/HCPCS: 71045; 80053; 82553; 83880; 84484; 85025; 85379; 93005; 96374; 96375; C9113; J1200

== ENCOUNTER 2019-01-26 19:27 | Emergency (ER) | payer MEDICARE ==
[2019-01-26 20:29] LABS: Hemoglobin 13.7 g/dL (14.0-18.0); Mean Corpuscular HGB CONC 33.5 g/dL (32.0-36.0); Mean Corpuscular Hemoglobin 29.4 pg (27.0-31.0); Mean Corpuscular Volume 87.9 fL (78.0-98.0); Mean Platelet Volume 6.6 fL (7.4-10.4); Platelet Count 224 thou/uL (130-400); RBC Distribution Width 12.4 % (11.5-14.5); Red Blood Cell (RBC) Count 4.66 mill/uL (4.70-6.10)
[2019-01-26] MEDS ORDERED: Ondansetron PF 4 MG/2 ML Vial ONE (20:38)
[2019-01-26 20:40] LABS: ALT (SGPT) 13 U/L (8-55); AST (SGOT) 15 U/L (5-34); Albumin 4.2 g/dL (3.5-5.0); Alkaline Phosphatase 94 U/L (40-150); Anion Gap 16 mmol/L (10-20); BUN (Urea Nitrogen) 13 mg/dL (8.4-25.7); Bilirubin, Total 0.4 mg/dL (0.2-1.2); Calc. Creatinine Clearance 0 mL/min (70-130); Calcium 9.3 mg/dL (7.8-10.44); Carbon Dioxide 23 mmol/L (22-29); Chloride 94 mmol/L (98-107); Estimated GFR-MDRD Greater than 90; Globulin 2.7 g/dL (2.4-3.5); Glucose 91 mg/dL (70-105); Lipase 94 U/L (8-78); Potassium 3.5 mmol/L (3.5-5.1); Protein, Total 6.9 g/dL (6.0-8.3); Sodium 129 mmol/L (136-145)
[2019-01-26 20:47] LABS: Eosinophils 3 % (0-10); Lymphocytes 41 % (21-51); MDiff Complete? YES; Monocytes 13 % (0-10); Neutrophil 43 % (42-75); Platelet Morphology Comment Appears Adequate; RBC Morphology Normal
[2019-01-26] MEDS ORDERED: Fentanyl 100 MCG/2 ML VIAL ONE (20:53)
--- NOTE | 2019-01-26 21:24 | RAD ---
PORTABLE CHEST: Date: 01-26-19 An AP portable film at 2000 is compared with a 04-14-18 study. FINDINGS: The heart is normal in size and the lungs are clear. No acute infiltrate, effusion, or vascular conge stion was seen. A faint density near the left second anterior rib may be due to overlapping structure s. The mediastinum appears normal. IMPRESSION: No acute finding. POS: HOME
== END 2019-01-26 21:55 | disposition home or self-care (01) ==
LOC: BURERS 19:27
DX: K85.90 Acute pancreatitis without necrosis or infection, unspecified (principal); I10 Essential (primary) hypertension; K21.9 Gastro-esophageal reflux disease without esophagitis; E11.9 Type 2 diabetes mellitus without complications; J44.9 Chronic obstructive pulmonary disease, unspecified; F32.9 Major depressive disorder, single episode, unspecified; F17.210 Nicotine dependence, cigarettes, uncomplicated
CPT/HCPCS: 36415; 71045; 80053; 83690; 83880; 84484; 85025; 93005; 94760; 96361; 96374; 96375; J2405; J3010

== ENCOUNTER 2019-04-03 19:07 | Emergency (ER) | payer MEDICARE ==
[2019-04-03 19:52] LABS: ALT (SGPT) 9 U/L (8-55); AST (SGOT) 15 U/L (5-34); Albumin 4.3 g/dL (3.5-5.0); Alkaline Phosphatase 109 U/L (40-150); Anion Gap 15 mmol/L (10-20); BUN (Urea Nitrogen) 8 mg/dL (8.4-25.7); Bilirubin, Total 0.2 mg/dL (0.2-1.2); Calc. Creatinine Clearance 0 mL/min (70-130); Calcium 9.9 mg/dL (7.8-10.44); Carbon Dioxide 23 mmol/L (22-29); Chloride 98 mmol/L (98-107); Estimated GFR-MDRD 80; Globulin 2.8 g/dL (2.4-3.5); Glucose 96 mg/dL (70-105); Lipase 33 U/L (8-78); Potassium 3.9 mmol/L (3.5-5.1); Protein, Total 7.1 g/dL (6.0-8.3); Sodium 132 mmol/L (136-145)
[2019-04-03 20:04] LABS: Hemoglobin 12.8 g/dL (14.0-18.0); Mean Corpuscular HGB CONC 33.7 g/dL (32.0-36.0); Mean Corpuscular Hemoglobin 29.5 pg (27.0-31.0); Mean Corpuscular Volume 87.3 fL (78.0-98.0); Mean Platelet Volume 6.7 fL (7.4-10.4); Platelet Count 265 thou/uL (130-400); RBC Distribution Width 13.1 % (11.5-14.5); Red Blood Cell (RBC) Count 4.35 mill/uL (4.70-6.10)
[2019-04-03 20:09] LABS: Lymphocytes 38 % (21-51); MDiff Complete? YES; Monocytes 12 % (0-10); Neutrophil 50 % (42-75); Platelet Morphology Comment Appears Adequate; RBC Morphology Normal
[2019-04-03] MEDS ORDERED: Lorazepam 0.5 MG TAB ONE ×2 (20:14→20:17)
[2019-04-03] MEDS ORDERED: Mag-Al Plus 1200 MG/1200 MG/120 MG/30 ML UDCUP ONE (20:15)
[2019-04-03] MEDS ORDERED: Lidocaine Viscous Sol 2% 15 ml UD Cup ONE (20:15)
[2019-04-03] MEDS ORDERED: Acetaminophen 500 MG TAB ONE (20:15)
[2019-04-03] MEDS ORDERED: Famotidine 20 MG TAB ONE (20:15)
--- NOTE | 2019-04-04 07:17 | RAD ---
PORTABLE CHEST: Date: 04/03/19 An AP portable film at 1922 hours is compared with the 01/26/19 study. The heart is normal in size and the lungs are clear. No infiltrate or effusion seen. No vascular yodit estion or edema. Mediastinum appears normal. IMPRESSION: No acute thoracic findings. POS: HOME
== END 2019-04-03 20:23 | disposition home or self-care (01) ==
LOC: BURERS 19:07
DX: R07.89 Other chest pain (principal); I10 Essential (primary) hypertension; K21.9 Gastro-esophageal reflux disease without esophagitis; E11.9 Type 2 diabetes mellitus without complications; J44.9 Chronic obstructive pulmonary disease, unspecified; F32.9 Major depressive disorder, single episode, unspecified; F17.210 Nicotine dependence, cigarettes, uncomplicated
CPT/HCPCS: 71045; 80053; 83690; 84484; 85025; 93005

== ENCOUNTER 2019-05-27 08:56 | Emergency (ER) | payer MEDICARE ==
[2019-05-27 09:22] LABS: #Basophils 0.1 thou/uL (0.0-0.2); #Eosinphils 0.1 thou/uL (0.0-0.7); #Lymphocytes 2.3 thou/uL (1.20-3.40); #Monocytes 0.9 thou/uL (0.11-0.59); #Neutrophils 4.3 thou/uL (1.40-6.50); %Basophils 1.6 % (0.0-1.0); %Eosinophils 0.8 % (0.0-10.0); %Lymphocytes 29.4 % (21.0-51.0); %Monocytes 11.6 % (0.0-10.0); %Neutrophils 56.6 % (42.0-75.0); Hemoglobin 16.9 g/dL (14.0-18.0); Mean Corpuscular HGB CONC 32.1 g/dL (32.0-36.0); Mean Corpuscular Hemoglobin 29.6 pg (27.0-31.0); Mean Platelet Volume 8.5 fL (7.4-10.4); Platelet Count 292 thou/uL (130-400); RBC Distribution Width 12.8 % (11.5-14.5); White Blood Cell (WBC) Count 7.7 thou/uL (4.8-10.8)
[2019-05-27 09:32] LABS: PTT 25.2 SEC (22.9-36.1); Prothrombin Time 12.9 SEC (12.0-14.7)
[2019-05-27] MEDS ORDERED: Pantoprazole 40 MG VIAL ONE ×2 (09:38→09:39)
[2019-05-27] MEDS ORDERED: Lidocaine Viscous Sol 2% 15 ml UD Cup ONE (09:38)
[2019-05-27] MEDS ORDERED: Milk Of Magnesia 30 ML UDCUP ONE (09:38)
[2019-05-27 09:43] LABS: ALT (SGPT) 13 U/L (8-55); AST (SGOT) 16 U/L (5-34); Albumin 4.4 g/dL (3.5-5.0); Alkaline Phosphatase 107 U/L (40-110); Anion Gap 17 mmol/L (10-20); BUN (Urea Nitrogen) 11 mg/dL (8.4-25.7); Bilirubin, Total 0.4 mg/dL (0.2-1.2); Calc. Creatinine Clearance 0 mL/min (70-130); Calcium 9.6 mg/dL (7.8-10.44); Carbon Dioxide 21 mmol/L (22-29); Chloride 102 mmol/L (98-107); Estimated GFR-MDRD Greater than 90; Globulin 3.3 g/dL (2.4-3.5); Glucose 104 mg/dL (70-105); Lipase 27 U/L (8-78); Potassium 3.9 mmol/L (3.5-5.1); Protein, Total 7.7 g/dL (6.0-8.3); Sodium 136 mmol/L (136-145)
[2019-05-27] MEDS ORDERED: Tranexamic Acid 1,000 MG/10 ML VIAL ONE (10:40)
[2019-05-27] MEDS ORDERED: Fentanyl 100 MCG/2 ML VIAL ONE (11:21)
[2019-05-27] MEDS ORDERED: Iopamidol 370 76% 100 ML VIAL ONE (14:03)
--- NOTE | 2019-05-27 15:35 | CT ---
CT AORTIC DISSECTION 05/27/[address] angio of the chest and abdomen was performed to display the entire aorta from top to bottom. MIP reconstructions were done afterwards in various planes. There is no sign of aortic dissection or aneurysm at any point on the study. Some calcification is pr obably present in the patient's LAD. It is difficult to assess filling of the right coronary artery. The celiac, superior mesenteric, and inferior mesenteric arteries all fill adequately. There is symme tric filling of the renal arteries. Both iliac arteries fill easily. CT of the thorax otherwise shows no sign of mass, acute infiltrate, or effusion. There is no sign of mediastinal mass or adenopathy. The abdominal CT showed no space occupying disease in the liver, spleen, pancreas, adrenal glands or kidneys. There is no obstruction of either kidney. A prior cholecystectomy is noted. The bowel shows no distention. There is no free air or free fluid in the area scanned. Degenerative changes are prese nt in the patient's lumbar spine. IMPRESSION: 1. No evidence of aortic aneurysm or dissection. 2. Incidental finding of a small hiatal hernia. 3. No obvious bowel abnormalities. Findings discussed with Dr. Doe at 1007 on 05/27/19. POS: HOME
== END 2019-05-27 11:49 | disposition short-term general hospital (02) ==
LOC: BURERS 08:56
DX: K92.2 Gastrointestinal hemorrhage, unspecified (principal); I10 Essential (primary) hypertension; E11.9 Type 2 diabetes mellitus without complications; F32.9 Major depressive disorder, single episode, unspecified; J44.9 Chronic obstructive pulmonary disease, unspecified; Z79.891 Long term (current) use of opiate analgesic; Z79.899 Other long term (current) drug therapy
CPT/HCPCS: 36415; 36416; 71275; 72191; 74175; 80053; 82274; 83690; 84484; 85025; 85610; 85730; 93005; 94760; 96374; 96375; C9113; J3010; Q9967

== ENCOUNTER 2020-01-12 16:28 | Emergency (ER) | payer MEDICARE, OTHER ==
[2020-01-12] MEDS ORDERED: hydrOXYzine 25 MG TAB ONE (17:04)
[2020-01-12] MEDS ORDERED: Lidocaine 1% w/Epinephrine 1:100K 20 ML VIAL ONE (17:43)
[2020-01-12 17:58] LABS: Hemoglobin 12.4 g/dL (14.0-18.0); Mean Corpuscular Hemoglobin 30.1 pg (27.0-31.0); Mean Corpuscular Volume 94.3 fL (78.0-98.0); Platelet Count 259 thou/uL (130-400); RBC Distribution Width 13.3 % (11.5-14.5); Red Blood Cell (RBC) Count 4.13 mill/uL (4.70-6.10); White Blood Cell (WBC) Count 8.8 thou/uL (4.8-10.8)
[2020-01-12 17:59] LABS: ALT (SGPT) 32 U/L (8-55); AST (SGOT) 97 U/L (5-34); Albumin 4.3 g/dL (3.5-5.0); Alkaline Phosphatase 82 U/L (40-110); Anion Gap 15 mmol/L (10-20); BUN (Urea Nitrogen) 11 mg/dL (8.4-25.7); Bilirubin, Total 0.3 mg/dL (0.2-1.2); Calc. Creatinine Clearance 0 mL/min (70-130); Calcium 9.8 mg/dL (7.8-10.44); Carbon Dioxide 24 mmol/L (22-29); Chloride 103 mmol/L (98-107); Estimated GFR-MDRD 74; Globulin 3.2 g/dL (2.4-3.5); Glucose 88 mg/dL (70-105); Lipase 43 U/L (8-78); Potassium 4.4 mmol/L (3.5-5.1); Protein, Total 7.5 g/dL (6.0-8.3); Sodium 138 mmol/L (136-145)
[2020-01-12 18:02] LABS: Band 11 % (5-11); Eosinophils 1 % (0-10); Lymphocytes 24 % (21-51); MDiff Complete? YES; Monocytes 17 % (0-10); Neutrophil 47 % (42-75)
[2020-01-12] MEDS ORDERED: Bacitracin 1 PK ONE (18:08)
[2020-01-12] MEDS ORDERED: Aspirin Chewable 81 MG TAB ONE (18:46)
--- NOTE | 2020-01-13 09:27 | RAD ---
PORTABLE CHEST: DATE: 01/12/2020. FINDINGS: An AP portable film at 1734 is compared with a 04/03/2019 study. The heart is normal in size and the lungs are clear. No infiltrate, effusion, or vascular congestion was seen. IMPRESSION: No acute thoracic finding. POS: HOME
== END 2020-01-12 17:30 | disposition home or self-care (01) ==
LOC: BURERS 16:28
DX: L02.31 Cutaneous abscess of buttock (principal); L03.317 Cellulitis of buttock; B34.9 Viral infection, unspecified; I10 Essential (primary) hypertension; K21.9 Gastro-esophageal reflux disease without esophagitis; E11.9 Type 2 diabetes mellitus without complications; J44.9 Chronic obstructive pulmonary disease, unspecified; F32.9 Major depressive disorder, single episode, unspecified; Z20.828 Contact with and (suspected) exposure to other viral communicable diseases
CPT/HCPCS: 10080; 71045; 80053; 83605; 83690; 83880; 84484; 85025; 93005; 96360

== ENCOUNTER 2020-06-09 15:16 | Emergency (ER) | payer MEDICARE | END 2020-06-09 15:45 | disposition left against medical advice (07) | LOC: BURERS 15:16 | DX: Z53.21 Procedure and treatment not carried out due to patient leaving prior to being seen by health care provider (principal) ==

== ENCOUNTER 2020-08-04 10:45 | Emergency (ER) | payer MEDICARE ==
[2020-08-04] MEDS ORDERED: Lorazepam 2 MG/ML VIAL ONE (11:12)
[2020-08-04 11:45] LABS: ALT (SGPT) 19 U/L (8-55); AST (SGOT) 28 U/L (5-34); Albumin 4.5 g/dL (3.4-4.8); Alkaline Phosphatase 137 U/L (40-110); Anion Gap 29 mmol/L (10-20); BUN (Urea Nitrogen) 7 mg/dL (8.4-25.7); Bilirubin, Total 0.3 mg/dL (0.2-1.2); Calc. Creatinine Clearance 0 mL/min (70-130); Calcium 9.3 mg/dL (7.8-10.44); Carbon Dioxide 11 mmol/L (23-31); Chloride 93 mmol/L (98-107); Globulin 3.6 g/dL (2.4-3.5); Glucose 102 mg/dL (80-115); Lipase 23 U/L (8-78); Potassium 4.7 mmol/L (3.5-5.1); Protein, Total 8.1 g/dL (5.8-8.1); Sodium 128 mmol/L (136-145)
[2020-08-04 11:57] LABS: #Basophils 0.1 thou/uL (0.0-0.2); #Monocytes 0.6 thou/uL (0.11-0.59); #Neutrophils 2.6 thou/uL (1.40-6.50); %Basophils 1.5 % (0.0-1.0); %Eosinophils 0.5 % (0.0-10.0); %Monocytes 14.4 % (0.0-10.0); %Neutrophils 59.6 % (42.0-75.0); Hemoglobin 15.9 g/dL (14.0-18.0); Mean Corpuscular HGB CONC 32.5 g/dL (32.0-36.0); Mean Corpuscular Hemoglobin 30.1 pg (27.0-31.0); Mean Corpuscular Volume 92.6 fL (78.0-98.0); Mean Platelet Volume 8.6 fL (7.4-10.4); Platelet Count 182 thou/uL (130-400); RBC Distribution Width 12.2 % (11.5-14.5); Red Blood Cell (RBC) Count 5.28 mill/uL (4.70-6.10); White Blood Cell (WBC) Count 4.4 thou/uL (4.8-10.8)
[2020-08-04 12:17] LABS: Bilirubin Negative (Negative); Blood, Urine Small (Negative); Clarity Slightly Cloudy (Clear); Glucose, Urine (Dipstick) Negative (Negative); Ketone, Urine Trace mg/dL (Negative); Leukocyte Negative (Negative); Nitrite Negative (Negative); Protein, Urine (Dipstick) 100 mg/dL (Neg-Trace); Urobilinogen 0.2 mg/dL (Less than 2); pH, Urine 5.5 (5.0-9.0)
[2020-08-04] MEDS ORDERED: Pantoprazole 40 MG VIAL ONE (12:21)
[2020-08-04] MEDS ORDERED: levETIRAcetam 500 MG/5 ML VIAL ONE (12:21)
[2020-08-04 12:24] LABS: Bacteria/HPF None Seen HPF (None Seen); RBC/HPF 0-3 HPF (0-3); Squamous Epithelial 0-3 HPF (0-3); WBC/HPF 0-3 HPF (0-3)
[2020-08-04 12:26] LABS: Amphetamine Not Detected (NotDetected); Barbiturates Screen Not Detected (NotDetected); Benzodiazepine Screen Detected (NotDetected); Cocaine Metabolite Screen Detected (NotDetected); Medtox Control Line Valid? VALID (VALID); Methadone Not Detected (NotDetected); Methamphetamine Not Detected (NotDetected); Opiate Screen Not Detected (NotDetected); Oxycodone Screen Not Detected (NotDetected); Phencyclidine (PCP) Not Detected (NotDetected); THC/Cannabinoid Screen Detected (NotDetected); Tricyclic Screen Not Detected (NotDetected)
--- NOTE | 2020-08-04 14:30 | RAD ---
PORTABLE CHEST: DATE: 08/04/2020. FINDINGS: An AP portable film at 1114 is compared with a 01/12/2020 study. The heart is normal in size and the lungs are clear. No acute infiltrate or effusion was seen. Ther e is no vascular congestion or edema. IMPRESSION: No acute thoracic finding. POS: HOME
--- NOTE | 2020-08-04 14:34 | CT ---
CT AB D AND PELVIS WITH CONTRAST: DATE: 08/04/2020. FINDINGS: The lung bases are clear. There is a focal area of pleural thickening on the left that is probably o f no current concern. The liver, spleen, pancreas, adrenal glands, kidneys, and abdominal aorta show ed no acute findings. There has been a prior cholecystectomy. The proximal stomach is somewhat thickened in terms of its wall thickness compared to the distal port ion. Gastritis might be considered. The bowel showed no overt inflammatory changes, dilation, or st reaking around it. No free air or free fluid was seen. The aorta is normal in caliber but calcified . CT of the pelvis shows no pelvic masses, fluid collections, or inflammatory changes. Some degenerati ve changes are seen in the lumbar spine. IMPRESSION: Mild thickening of the wall of the proximal stomach. Gastritis might be a consideration. Findings discussed with Dr. Doe at 1302 on 08/04/2020. CODE CR POS: HOME
[2020-08-04] MEDS ORDERED: Lidocaine Viscous Sol 2% 15 ml UD Cup ONE (15:00)
[2020-08-04] MEDS ORDERED: Mag-Al Plus 1200 MG/1200 MG/120 MG/30 ML UDCUP ONE (15:00)
[2020-08-04] MEDS ORDERED: Acetaminophen 500 MG TAB ONE (17:31)
== END 2020-08-04 17:55 | disposition short-term general hospital (02) ==
LOC: BURERS 10:45
DX: R56.9 Unspecified convulsions (principal); K29.00 Acute gastritis without bleeding; E87.1 Hypo-osmolality and hyponatremia; Z79.899 Other long term (current) drug therapy; I10 Essential (primary) hypertension; E78.00 Pure hypercholesterolemia, unspecified; E11.9 Type 2 diabetes mellitus without complications; F17.210 Nicotine dependence, cigarettes, uncomplicated
CPT/HCPCS: 36415; 71045; 74177; 80053; 80306; 80307; 81003; 81015; 83690; 84484; 85025; 93005; 94760; 96365; 96375; C9113; J1953; J2060; Q9967

== ENCOUNTER 2020-11-29 20:28 | Emergency (ER) | payer MEDICARE ==
[2020-11-29] MEDS ORDERED: EPINEPHrine 1 MG/ML AMP ONE (20:35)
[2020-11-29] MEDS ORDERED: diphenhydrAMINE 50 MG/ML VIAL ONE (20:48)
[2020-11-29] MEDS ORDERED: methylPREDNISolone Sod Succ/PF 125 MG/2 ML VIAL ONE (20:49)
[2020-11-29] MEDS ORDERED: Famotidine In NaCl 20 mg/50 ml Premix Bag ONE (20:49)
[2020-11-29] MEDS ORDERED: Tranexamic Acid 1,000 MG/10 ML VIAL ONE (20:55)
[2020-11-29] MEDS ORDERED: Ketamine 50 MG/ML (10ML VIAL) ONE (20:58)
[2020-11-29 21:15] LABS: ALT (SGPT) 12 U/L (8-55); AST (SGOT) 11 U/L (5-34); Albumin 4.6 g/dL (3.4-4.8); Alkaline Phosphatase 93 U/L (40-110); Anion Gap 18 mmol/L (10-20); BUN (Urea Nitrogen) 7 mg/dL (8.4-25.7); Bilirubin, Total 0.5 mg/dL (0.2-1.2); Calc. Creatinine Clearance 0 mL/min (70-130); Calcium 9.8 mg/dL (7.8-10.44); Carbon Dioxide 22 mmol/L (23-31); Chloride 93 mmol/L (98-107); Globulin 3.6 g/dL (2.4-3.5); Glucose 120 mg/dL (80-115); Protein, Total 8.2 g/dL (5.8-8.1); Sodium 129 mmol/L (136-145)
[2020-11-29 21:29] LABS: Band 3 % (5-11); Hemoglobin 15.9 g/dL (14.0-18.0); Lymphocytes 23 % (21-51); MDiff Complete? YES; Mean Corpuscular HGB CONC 33.5 g/dL (32.0-36.0); Mean Corpuscular Hemoglobin 29.2 pg (27.0-31.0); Mean Corpuscular Volume 87.2 fL (78.0-98.0); Mean Platelet Volume 7.5 fL (7.4-10.4); Monocytes 23 % (0-10); Neutrophil 46 % (42-75); Platelet Count 328 thou/uL (130-400); RBC Distribution Width 12.1 % (11.5-14.5); Reactive Lymphocytes 5 % (0-10); Red Blood Cell (RBC) Count 5.44 mill/uL (4.70-6.10); White Blood Cell (WBC) Count 7.9 thou/uL (4.8-10.8)
[2020-11-29] MEDS ORDERED: Fentanyl 100 MCG/2 ML VIAL ONE (21:38)
[2020-11-29] MEDS ORDERED: Midazolam HCl 2 mg/2 ml Vial ONE (21:44)
[2020-11-29] MEDS ORDERED: Ondansetron PF 4 MG/2 ML Vial ONE (21:59)
== END 2020-11-29 22:18 | disposition short-term general hospital (02) ==
LOC: BURERS 20:28
DX: T78.3XXA Angioneurotic edema, initial encounter (principal); I10 Essential (primary) hypertension; E78.00 Pure hypercholesterolemia, unspecified; E11.9 Type 2 diabetes mellitus without complications; F17.210 Nicotine dependence, cigarettes, uncomplicated; Z79.899 Other long term (current) drug therapy; Z79.84 Long term (current) use of oral hypoglycemic drugs
CPT/HCPCS: 80053; 84484; 85025; 93005; 94760; 96365; 96372; 96375; 96376; 99292; J0171; J1200; J2250; J2405; J2930; J3010

== ENCOUNTER 2021-01-29 13:26 | Emergency (ER) | payer MEDICARE ==
[2021-01-29 14:47] LABS: Hemoglobin 17.1 g/dL (14.0-18.0); Mean Corpuscular HGB CONC 34.7 g/dL (32.0-36.0); Mean Corpuscular Hemoglobin 29.5 pg (27.0-31.0); Platelet Count 282 thou/uL (130-400); RBC Distribution Width 11.8 % (11.5-14.5); Red Blood Cell (RBC) Count 5.79 mill/uL (4.70-6.10); White Blood Cell (WBC) Count 13.3 thou/uL (4.8-10.8)
[2021-01-29 15:00] LABS: ALT (SGPT) 22 U/L (8-55); AST (SGOT) 22 U/L (5-34); Albumin 5.4 g/dL (3.4-4.8); Alkaline Phosphatase 106 U/L (40-110); Anion Gap 31 mmol/L (10-20); BUN (Urea Nitrogen) 22 mg/dL (8.4-25.7); Bilirubin, Total 0.5 mg/dL (0.2-1.2); Calc. Creatinine Clearance 0 mL/min (70-130); Calcium 11.1 mg/dL (7.8-10.44); Carbon Dioxide 19 mmol/L (23-31); Chloride 82 mmol/L (98-107); Globulin 3.9 g/dL (2.4-3.5); Glucose 137 mg/dL (80-115); Lipase 17 U/L (8-78); Potassium 3.8 mmol/L (3.5-5.1); Protein, Total 9.3 g/dL (5.8-8.1); Sodium 128 mmol/L (136-145)
[2021-01-29 15:04] LABS: Bilirubin Small (Negative); Blood, Urine Small (Negative); Clarity Clear (Clear); Glucose, Urine (Dipstick) Negative (Negative); Ketone, Urine 80 mg/dL (Negative); Leukocyte Negative (Negative); Nitrite Negative (Negative); Protein, Urine (Dipstick) 100 mg/dL (Neg-Trace); Urobilinogen 0.2 mg/dL (Less than 2)
[2021-01-29 15:11] LABS: Specific Gravity, Urine 1.024 (1.002-1.036)
[2021-01-29 15:11] LABS: Band 4 % (5-11); Lymphocytes 15 % (21-51); MDiff Complete? YES; Monocytes 8 % (0-10); Neutrophil 73 % (42-75)
[2021-01-29 15:16] LABS: RBC/HPF 0-3 HPF (0-3)
[2021-01-29 15:17] LABS: Bacteria/HPF None Seen HPF (None Seen); Renal Epithelial 0-3 HPF (None Seen); Squamous Epithelial 0-3 HPF (0-3); Transitional Epithelial 0-3 HPF (None Seen)
[2021-01-29 15:18] LABS: Cocaine Metabolite Screen Detected (NotDetected); Methamphetamine Not Detected (NotDetected); Opiate Screen Not Detected (NotDetected); Phencyclidine (PCP) Not Detected (NotDetected); THC/Cannabinoid Screen Detected (NotDetected)
[2021-01-29 15:19] LABS: Amphetamine Not Detected (NotDetected); Barbiturates Screen Not Detected (NotDetected); Benzodiazepine Screen Detected (NotDetected); Medtox Control Line Valid? VALID (VALID); Methadone Not Detected (NotDetected); Oxycodone Screen Not Detected (NotDetected); Tricyclic Screen Not Detected (NotDetected)
[2021-01-29] MEDS ORDERED: Morphine 4 MG/ML VIAL ONE (16:34)
== END 2021-01-29 16:49 | disposition home or self-care (01) ==
LOC: BURERS 13:26
DX: R10.13 Epigastric pain (principal); R11.2 Nausea with vomiting, unspecified; R63.0 Anorexia; I10 Essential (primary) hypertension; E11.9 Type 2 diabetes mellitus without complications; E78.00 Pure hypercholesterolemia, unspecified; F17.210 Nicotine dependence, cigarettes, uncomplicated; Z79.899 Other long term (current) drug therapy
CPT/HCPCS: 36415; 74176; 80053; 80306; 81003; 81015; 83690; 85025; 96374; J2270

== ENCOUNTER 2021-02-01 16:55 | Emergency (ER) | payer MEDICARE | END 2021-02-01 17:27 | disposition left against medical advice (07) | LOC: BURERS 16:55 | DX: R06.00 Dyspnea, unspecified (principal); R00.0 Tachycardia, unspecified; E11.9 Type 2 diabetes mellitus without complications; E78.00 Pure hypercholesterolemia, unspecified; I10 Essential (primary) hypertension; Z79.899 Other long term (current) drug therapy ==

== ENCOUNTER 2021-02-16 19:21 | Observation (INO) | payer MEDICARE ==
[2021-02-16] MEDS ORDERED: Famotidine In NaCl 20 mg/50 ml Premix Bag ONE (20:10)
[2021-02-16] MEDS ORDERED: Ondansetron PF 4 MG/2 ML Vial ONE ×2 (20:10→20:47)
[2021-02-16 20:17] LABS: Bilirubin Small (Negative); Blood, Urine Negative (Negative); Clarity Cloudy (Clear); Glucose, Urine (Dipstick) Negative (Negative); Ketone, Urine 40 mg/dL (Negative); Leukocyte Negative (Negative); Nitrite Negative (Negative); Protein, Urine (Dipstick) Trace mg/dL (Neg-Trace); Specific Gravity, Urine 1.025 (1.005-1.030)
[2021-02-16 20:20] LABS: #Basophils 0.1 thou/uL (0.0-0.2); #Lymphocytes 2.4 thou/uL (1.20-3.40); #Monocytes 0.3 thou/uL (0.11-0.59); #Neutrophils 2.7 thou/uL (1.40-6.50); %Basophils 1.9 % (0.0-1.0); %Eosinophils 0.4 % (0.0-10.0); %Lymphocytes 42.8 % (21.0-51.0); %Monocytes 5.2 % (0.0-10.0); %Neutrophils 49.7 % (42.0-75.0); Hemoglobin 13.8 g/dL (14.0-18.0); Mean Corpuscular HGB CONC 35.2 g/dL (32.0-36.0); Mean Corpuscular Hemoglobin 29.4 pg (27.0-31.0); Mean Corpuscular Volume 83.3 fL (78.0-98.0); Platelet Count 336 thou/uL (130-400); RBC Distribution Width 11.6 % (11.5-14.5); Red Blood Cell (RBC) Count 4.69 mill/uL (4.70-6.10); White Blood Cell (WBC) Count 5.5 thou/uL (4.8-10.8)
[2021-02-16 20:31] LABS: ALT (SGPT) 17 U/L (8-55); AST (SGOT) 18 U/L (5-34); Albumin 4.3 g/dL (3.4-4.8); Alkaline Phosphatase 94 U/L (40-110); Anion Gap 19 mmol/L (10-20); BUN (Urea Nitrogen) 7 mg/dL (8.4-25.7); Bilirubin, Total Less than 0.2 mg/dL (0.2-1.2); Calc. Creatinine Clearance 0 mL/min (70-130); Calcium 9.5 mg/dL (7.8-10.44); Carbon Dioxide 20 mmol/L (23-31); Chloride 94 mmol/L (98-107); Globulin 3.3 g/dL (2.4-3.5); Glucose 74 mg/dL (80-115); Lipase 36 U/L (8-78); Potassium 3.3 mmol/L (3.5-5.1); Protein, Total 7.6 g/dL (5.8-8.1); Sodium 130 mmol/L (136-145)
[2021-02-16] MEDS ORDERED: Glycopyrrolate 0.4 MG/ 2 ML VIAL ONE (20:47)
[2021-02-16] MEDS ORDERED: Thiamine HCl 200 MG/2 ML VIAL ONE (21:10)
[2021-02-16] MEDS ORDERED: Dextrose 50% Abboject 50 ML SYRINGE ONE (21:10)
[2021-02-16] MEDS ORDERED: Ondansetron PF 4 MG/2 ML Vial IVP PRN (23:15)
[2021-02-16] MEDS ORDERED: Ondansetron ODT 4 MG TAB SL PRN (23:15)
[2021-02-16] MEDS: Acetaminophen 325 MG TAB PO PRN (23:27)
[2021-02-17] MEDS: Dextrose 5 %-0.45 % NaCl 1,000 ML IV SCH ×4 (00:42→19:35)
[2021-02-17] MEDS: Acetaminophen 325 MG TAB PO PRN (04:02)
[2021-02-17 05:46] LABS: Lactic Acid 0.6 mmol/L (0.5-2.2)
[2021-02-17 05:50] LABS: Anion Gap 13 mmol/L (10-20)
[2021-02-17 05:53] LABS: BUN (Urea Nitrogen) 6 mg/dL (8.4-25.7); Calc. Creatinine Clearance 98 mL/min (70-130); Calcium 7.9 mg/dL (7.8-10.44); Carbon Dioxide 20 mmol/L (23-31); Chloride 101 mmol/L (98-107); Glucose 76 mg/dL (80-115); Lipase 26 U/L (8-78); Potassium 3.2 mmol/L (3.5-5.1); Sodium 131 mmol/L (136-145)
[2021-02-17] MEDS ORDERED: Non-Formulary Item 1 EACH (Lorazepam [Lorazepam] 2 MG Tablet) PO PRN (06:22)
[2021-02-17] MEDS ORDERED: Lorazepam 1 MG TAB PO PRN ×2 (06:38→06:45)
[2021-02-17] MEDS: Dicyclomine 20 MG TAB PO PRN ×2 (06:44→16:32)
[2021-02-17] MEDS: levETIRAcetam 250 MG TAB PO SCH ×2 (08:30→20:23)
[2021-02-17] MEDS: FLUoxetine HCl 10 MG CAP PO SCH (08:30)
[2021-02-17] MEDS: Pregabalin 75 MG CAP PO SCH ×2 (08:31→20:21)
[2021-02-17] MEDS: Alogliptin 25 MG TAB PO SCH (08:32)
[2021-02-17] MEDS: Thiamine 100 MG TAB PO SCH (08:32)
[2021-02-17] MEDS: Potassium Chloride 20 MEQ TAB PO SCH ×3 (08:33→20:22)
[2021-02-17] MEDS: Famotidine 20 MG TAB PO SCH (08:33)
[2021-02-17] MEDS: Amlodipine 10 MG TAB PO SCH (08:34)
[2021-02-17] MEDS: Sucralfate 1 GM TAB PO SCH ×4 (08:34→20:24)
[2021-02-17] MEDS: Folic Acid 1 MG TAB PO SCH (08:36)
[2021-02-17] MEDS: Carvedilol 6.25 MG TAB PO SCH ×2 (08:36→20:23)
[2021-02-17] MEDS ORDERED: tiZANidine HCl 4 MG TAB PO SCH (09:00)
[2021-02-17] MEDS ORDERED: Pregabalin 75 MG CAP PO SCH (09:00)
[2021-02-17] MEDS ORDERED: FLUOXETINE HCL 20 MG PO SCH (09:00)
[2021-02-17] MEDS ORDERED: LEVETIRACETAM 500 MG PO SCH (09:00)
[2021-02-17] MEDS ORDERED: Non-Formulary Item 1 EACH (Sitagliptin Phosphate [Januvia] 100 MG Tab) PO SCH (09:00)
[2021-02-17] MEDS ORDERED: Non-Formulary Item 1 EACH (Esomeprazole Magnesium [Nexium] 20 MG Capsule.Dr) PO SCH (09:00)
[2021-02-17] MEDS: Lorazepam 1 MG TAB PO PRN ×2 (10:55→20:24)
[2021-02-17] MEDS: tiZANidine HCl 4 MG TAB PO PRN (15:06)
[2021-02-17] MEDS: cloNIDine 0.1 MG TAB PO SCH (20:42)
[2021-02-17] MEDS ORDERED: QUETIAPINE FUMARATE 50 MG PO SCH (21:00)
[2021-02-18] MEDS: tiZANidine HCl 4 MG TAB PO PRN ×3 (01:17→15:11)
[2021-02-18] MEDS: Acetaminophen 325 MG TAB PO PRN (01:17)
[2021-02-18] MEDS: Dicyclomine 20 MG TAB PO PRN ×2 (01:17→15:08)
[2021-02-18] MEDS: Dextrose 5 %-0.45 % NaCl 1,000 ML IV SCH (04:50)
[2021-02-18 07:04] LABS: #Eosinphils 0.1 thou/uL (0.0-0.7); #Monocytes 1.3 thou/uL (0.11-0.59); #Neutrophils 6.8 thou/uL (1.40-6.50); %Basophils 0.7 % (0.0-1.0); %Eosinophils 0.5 % (0.0-10.0); %Lymphocytes 19.5 % (21.0-51.0); %Monocytes 12.5 % (0.0-10.0); %Neutrophils 66.8 % (42.0-75.0); Hemoglobin 12.9 g/dL (14.0-18.0); Manual Diff?? NO; Mean Corpuscular HGB CONC 35.5 g/dL (32.0-36.0); Mean Corpuscular Hemoglobin 29.6 pg (27.0-31.0); Mean Corpuscular Volume 83.2 fL (78.0-98.0); Mean Platelet Volume 7.1 fL (7.4-10.4); Platelet Count 251 thou/uL (130-400); Red Blood Cell (RBC) Count 4.35 mill/uL (4.70-6.10); White Blood Cell (WBC) Count 10.2 thou/uL (4.8-10.8)
[2021-02-18 07:05] LABS: #Basophils 0.1 thou/uL (0.0-0.2); Anion Gap 11 mmol/L (10-20); BUN (Urea Nitrogen) 8 mg/dL (8.4-25.7); Calc. Creatinine Clearance 87 mL/min (70-130); Calcium 8.3 mg/dL (7.8-10.44); Carbon Dioxide 21 mmol/L (23-31); Chloride 104 mmol/L (98-107); Glucose 105 mg/dL (80-115); MDiff Complete? YES; Potassium 4.7 mmol/L (3.5-5.1); Sodium 131 mmol/L (136-145)
[2021-02-18] MEDS: FLUoxetine HCl 10 MG CAP PO SCH (08:15)
[2021-02-18] MEDS: levETIRAcetam 250 MG TAB PO SCH ×2 (08:15→19:34)
[2021-02-18] MEDS: Pregabalin 75 MG CAP PO SCH ×2 (08:16→19:34)
[2021-02-18] MEDS: Carvedilol 6.25 MG TAB PO SCH ×2 (08:17→19:35)
[2021-02-18] MEDS: Folic Acid 1 MG TAB PO SCH (08:17)
[2021-02-18] MEDS: Amlodipine 10 MG TAB PO SCH (08:21)
[2021-02-18] MEDS: Famotidine 20 MG TAB PO SCH (08:21)
[2021-02-18] MEDS: Sucralfate 1 GM TAB PO SCH ×4 (08:21→19:34)
[2021-02-18] MEDS: Thiamine 100 MG TAB PO SCH (08:21)
[2021-02-18] MEDS: Alogliptin 25 MG TAB PO SCH (08:22)
[2021-02-18] MEDS: Potassium Chloride 20 MEQ TAB PO SCH ×3 (08:22→19:34)
[2021-02-18] MEDS: Lorazepam 1 MG TAB PO PRN ×2 (08:26→19:34)
[2021-02-18] MEDS: cloNIDine 0.1 MG TAB PO SCH (19:36)
[2021-02-18 22:36] VITALS: BMI 27.3
[2021-02-19] MEDS: Acetaminophen 325 MG TAB PO PRN (00:59)
[2021-02-19] MEDS: tiZANidine HCl 4 MG TAB PO PRN (01:00)
[2021-02-19 06:40] LABS: Anion Gap 10 mmol/L (10-20); BUN (Urea Nitrogen) 13 mg/dL (8.4-25.7); Calc. Creatinine Clearance 76 mL/min (70-130); Calcium 8.5 mg/dL (7.8-10.44); Carbon Dioxide 23 mmol/L (23-31); Chloride 106 mmol/L (98-107); Glucose 101 mg/dL (80-115); Potassium 4.4 mmol/L (3.5-5.1); Sodium 135 mmol/L (136-145)
[2021-02-19] MEDS: Carvedilol 6.25 MG TAB PO SCH (08:50)
[2021-02-19] MEDS: FLUoxetine HCl 10 MG CAP PO SCH (08:58)
[2021-02-19] MEDS: Famotidine 20 MG TAB PO SCH (08:59)
[2021-02-19] MEDS: Alogliptin 25 MG TAB PO SCH (08:59)
[2021-02-19] MEDS: levETIRAcetam 250 MG TAB PO SCH (09:00)
[2021-02-19] MEDS: Sucralfate 1 GM TAB PO SCH ×2 (09:01→11:25)
[2021-02-19] MEDS: Folic Acid 1 MG TAB PO SCH (09:01)
[2021-02-19] MEDS: Pregabalin 75 MG CAP PO SCH (09:02)
[2021-02-19] MEDS: Amlodipine 10 MG TAB PO SCH (09:02)
[2021-02-19] MEDS: Thiamine 100 MG TAB PO SCH (09:03)
[2021-02-19 09:07] VITALS: BP 116/68
[2021-02-19 10:51] VITALS: TEMP 97.6
[2021-02-19] MEDS: Lorazepam 1 MG TAB PO PRN (11:25)
== END 2021-02-19 11:30 | disposition home or self-care (01) ==
LOC: BURERS 19:21 → BURMED 20:50 → INTOOBSV 20:50
PROVIDERS: ADMIT Family Medicine; ATTEND Family Medicine
DX: K29.20 Alcoholic gastritis without bleeding (principal); E87.1 Hypo-osmolality and hyponatremia; E87.6 Hypokalemia; F33.1 Major depressive disorder, recurrent, moderate; F10.10 Alcohol abuse, uncomplicated; F19.10 Other psychoactive substance abuse, uncomplicated; F17.210 Nicotine dependence, cigarettes, uncomplicated; I10 Essential (primary) hypertension; E78.5 Hyperlipidemia, unspecified; E11.9 Type 2 diabetes mellitus without complications; G40.909 Epilepsy, unspecified, not intractable, without status epilepticus; Z79.899 Other long term (current) drug therapy; Z88.1 Allergy status to other antibiotic agents; Z88.2 Allergy status to sulfonamides; Z88.5 Allergy status to narcotic agent; Z88.8 Allergy status to other drugs, medicaments and biological substances; Y90.1 Blood alcohol level of 20-39 mg/100 ml
CPT/HCPCS: 36415; 36416; 80048; 80053; 80307; 81003; 83605; 83690; 85025; 90471; 90732; 93005; 94760; 96365; 96375; 96376; G0009; G0378; J2405; J3411; Q0162

== ENCOUNTER 2021-03-30 13:22 | Emergency (ER) | payer MEDICARE ==
[2021-03-30 14:37] LABS: Bilirubin Negative (Negative); Blood, Urine Small (Negative); Clarity Clear (Clear); Glucose, Urine (Dipstick) Negative (Negative); Ketone, Urine 40 mg/dL (Negative); Leukocyte Negative (Negative); Nitrite Negative (Negative); Protein, Urine (Dipstick) Negative (Neg-Trace); Specific Gravity, Urine 1.015 (1.005-1.030); Urobilinogen 0.2 mg/dL (Less than 2)
[2021-03-30 14:45] LABS: Hemoglobin 14.1 g/dL (14.0-18.0); Mean Corpuscular HGB CONC 33.3 g/dL (32.0-36.0); Mean Corpuscular Hemoglobin 28.9 pg (27.0-31.0); Mean Corpuscular Volume 86.8 fL (78.0-98.0); Mean Platelet Volume 8.9 fL (7.4-10.4); Platelet Count 152 thou/uL (130-400); RBC Distribution Width 13.6 % (11.5-14.5); Red Blood Cell (RBC) Count 4.87 mill/uL (4.70-6.10); White Blood Cell (WBC) Count 6.2 thou/uL (4.8-10.8)
[2021-03-30 14:47] LABS: Bacteria/HPF Rare-Few HPF (None Seen); RBC/HPF None Seen HPF (0-3); WBC/HPF 0-3 HPF (0-3)
[2021-03-30 14:50] LABS: Amphetamine Not Detected (NotDetected); Barbiturates Screen Not Detected (NotDetected); Benzodiazepine Screen Not Detected (NotDetected); Cocaine Metabolite Screen Detected (NotDetected); Medtox Control Line Valid? VALID (VALID); Methadone Not Detected (NotDetected); Methamphetamine Not Detected (NotDetected); Opiate Screen Not Detected (NotDetected); Oxycodone Screen Not Detected (NotDetected); Phencyclidine (PCP) Not Detected (NotDetected); THC/Cannabinoid Screen Detected (NotDetected); Tricyclic Screen Detected (NotDetected)
[2021-03-30] MEDS ORDERED: Acetaminophen 500 MG TAB ONE (14:51)
[2021-03-30 14:55] LABS: ALT (SGPT) 12 U/L (8-55); AST (SGOT) 14 U/L (5-34); Albumin 4.6 g/dL (3.4-4.8); Alkaline Phosphatase 123 U/L (40-110); Anion Gap 17 mmol/L (10-20); BUN (Urea Nitrogen) 16 mg/dL (8.4-25.7); Bilirubin, Total 0.6 mg/dL (0.2-1.2); Calc. Creatinine Clearance 0 mL/min (70-130); Carbon Dioxide 20 mmol/L (23-31); Chloride 102 mmol/L (98-107); Globulin 3.5 g/dL (2.4-3.5); Glucose 84 mg/dL (80-115); Lipase 18 U/L (8-78); Potassium 4.3 mmol/L (3.5-5.1); Protein, Total 8.1 g/dL (5.8-8.1); Sodium 135 mmol/L (136-145)
[2021-03-30 15:05] LABS: Lymphocytes 41 % (21-51); MDiff Complete? YES; Monocytes 6 % (0-10); Neutrophil 53 % (42-75); Platelet Morphology Comment Appears Adequate; RBC Morphology Normal
== END 2021-03-30 15:19 | disposition home or self-care (01) ==
LOC: BURERS 13:22
DX: M54.5 Low back pain (principal); I10 Essential (primary) hypertension; E11.9 Type 2 diabetes mellitus without complications; E78.00 Pure hypercholesterolemia, unspecified; F17.210 Nicotine dependence, cigarettes, uncomplicated; Z79.899 Other long term (current) drug therapy
CPT/HCPCS: 36415; 71045; 74176; 80053; 80306; 81003; 81015; 83690; 84484; 85025; 93005; 94760

== ENCOUNTER 2021-04-02 19:46 | Emergency (ER) | payer MEDICARE ==
[2021-04-03] MEDS ORDERED: Lidocaine Viscous Sol 2% 15 ml UD Cup ONE (07:38)
[2021-04-03] MEDS ORDERED: Milk Of Magnesia 30 ML UDCUP ONE (07:38)
[2021-04-03] MEDS ORDERED: Mag-Al Plus 1200 MG/1200 MG/120 MG/30 ML UDCUP ONE (07:39)
== END 2021-04-02 20:48 | disposition left against medical advice (07) ==
LOC: BURERS 19:46
DX: Z53.21 Procedure and treatment not carried out due to patient leaving prior to being seen by health care provider (principal)
CPT/HCPCS: J0500

== ENCOUNTER 2021-04-03 06:39 | Emergency (ER) | payer MEDICARE ==
[2021-04-03] MEDS ORDERED: Acetaminophen 500 MG TAB ONE (07:14)
[2021-04-03] MEDS ORDERED: Pantoprazole 40 MG VIAL ONE (07:14)
[2021-04-03 08:06] LABS: ALT (SGPT) 23 U/L (8-55); AST (SGOT) 38 U/L (5-34); Albumin 4.6 g/dL (3.4-4.8); Alkaline Phosphatase 165 U/L (40-110); Anion Gap 19 mmol/L (10-20); BUN (Urea Nitrogen) 6 mg/dL (8.4-25.7); Bilirubin, Total 0.4 mg/dL (0.2-1.2); Calc. Creatinine Clearance 0 mL/min (70-130); Calcium 9.6 mg/dL (7.8-10.44); Carbon Dioxide 21 mmol/L (23-31); Chloride 94 mmol/L (98-107); Globulin 3.6 g/dL (2.4-3.5); Glucose 102 mg/dL (80-115); Lipase 28 U/L (8-78); Potassium 4.8 mmol/L (3.5-5.1); Protein, Total 8.2 g/dL (5.8-8.1); Sodium 129 mmol/L (136-145)
[2021-04-03 08:08] LABS: #Basophils 0.1 thou/uL (0.0-0.2); #Eosinphils 0.1 thou/uL (0.0-0.7); #Lymphocytes 2.2 thou/uL (1.20-3.40); #Monocytes 0.3 thou/uL (0.11-0.59); #Neutrophils 2.7 thou/uL (1.40-6.50); %Basophils 1.7 % (0.0-1.0); %Lymphocytes 41.3 % (21.0-51.0); %Monocytes 4.7 % (0.0-10.0); %Neutrophils 51.3 % (42.0-75.0); Hemoglobin 13.8 g/dL (14.0-18.0); Large Platelets SLIGHT; MDiff Complete? YES; Mean Corpuscular HGB CONC 34.5 g/dL (32.0-36.0); Mean Corpuscular Hemoglobin 28.9 pg (27.0-31.0); Mean Corpuscular Volume 83.9 fL (78.0-98.0); Mean Platelet Volume 9.8 fL (7.4-10.4); Platelet Count 115 thou/uL (130-400); RBC Distribution Width 12.3 % (11.5-14.5); Red Blood Cell (RBC) Count 4.77 mill/uL (4.70-6.10); White Blood Cell (WBC) Count 5.3 thou/uL (4.8-10.8)
[2021-04-03] MEDS ORDERED: Lidocaine Viscous Sol 2% 15 ml UD Cup ONE (13:22)
[2021-04-03] MEDS ORDERED: Mag-Al Plus 1200 MG/1200 MG/120 MG/30 ML UDCUP ONE (13:22)
== END 2021-04-03 08:43 | disposition home or self-care (01) ==
LOC: BURERS 06:39
DX: K29.20 Alcoholic gastritis without bleeding (principal); E87.1 Hypo-osmolality and hyponatremia; E78.00 Pure hypercholesterolemia, unspecified; E11.9 Type 2 diabetes mellitus without complications; K58.9 Irritable bowel syndrome, unspecified; I10 Essential (primary) hypertension; F17.210 Nicotine dependence, cigarettes, uncomplicated; G40.909 Epilepsy, unspecified, not intractable, without status epilepticus; Z85.850 Personal history of malignant neoplasm of thyroid; Z85.51 Personal history of malignant neoplasm of bladder
CPT/HCPCS: 80053; 82274; 83690; 84484; 85025; 93005; 96372; C9113

== ENCOUNTER 2021-04-07 09:22 | Emergency (ER) | payer MEDICARE ==
[2021-04-07] MEDS ORDERED: Famotidine 20 MG TAB ONE (10:09)
[2021-04-07 10:20] LABS: #Basophils 0.1 thou/uL (0.0-0.2); #Lymphocytes 1.7 thou/uL (1.20-3.40); %Basophils 0.9 % (0.0-1.0); %Eosinophils 0.2 % (0.0-10.0); %Lymphocytes 25.4 % (21.0-51.0); %Monocytes 14.2 % (0.0-10.0); %Neutrophils 59.3 % (42.0-75.0); Hemoglobin 14.4 g/dL (14.0-18.0); Mean Corpuscular HGB CONC 34.3 g/dL (32.0-36.0); Mean Corpuscular Hemoglobin 29.2 pg (27.0-31.0); Mean Corpuscular Volume 85.2 fL (78.0-98.0); Mean Platelet Volume 7.8 fL (7.4-10.4); Platelet Count 219 thou/uL (130-400); RBC Distribution Width 12.8 % (11.5-14.5); Red Blood Cell (RBC) Count 4.92 mill/uL (4.70-6.10); White Blood Cell (WBC) Count 6.8 thou/uL (4.8-10.8)
[2021-04-07] MEDS ORDERED: Ondansetron PF 4 MG/2 ML Vial ONE (10:31)
[2021-04-07] MEDS ORDERED: Lidocaine Viscous Sol 2% 15 ml UD Cup ONE (10:31)
[2021-04-07] MEDS ORDERED: Mag-Al Plus 1200 MG/1200 MG/120 MG/30 ML UDCUP ONE (10:31)
[2021-04-07 10:35] LABS: ALT (SGPT) 24 U/L (8-55); AST (SGOT) 20 U/L (5-34); Albumin 4.6 g/dL (3.4-4.8); Alkaline Phosphatase 148 U/L (40-110); Anion Gap 18 mmol/L (10-20); BUN (Urea Nitrogen) 6 mg/dL (8.4-25.7); Bilirubin, Total 0.4 mg/dL (0.2-1.2); Calc. Creatinine Clearance 0 mL/min (70-130); Calcium 10.2 mg/dL (7.8-10.44); Carbon Dioxide 24 mmol/L (23-31); Chloride 94 mmol/L (98-107); Globulin 3.9 g/dL (2.4-3.5); Glucose 103 mg/dL (80-115); Lipase 40 U/L (8-78); Potassium 4.5 mmol/L (3.5-5.1); Protein, Total 8.5 g/dL (5.8-8.1); Sodium 131 mmol/L (136-145)
[2021-04-07 11:07] LABS: Bilirubin Small (Negative); Blood, Urine Small (Negative); Clarity Clear (Clear); Glucose, Urine (Dipstick) Negative (Negative); Ketone, Urine 40 mg/dL (Negative); Leukocyte Negative (Negative); Nitrite Negative (Negative); Protein, Urine (Dipstick) Negative (Neg-Trace)
[2021-04-07 11:12] LABS: Bacteria/HPF None Seen HPF (None Seen); RBC/HPF 0-3 HPF (0-3); Squamous Epithelial 0-3 HPF (0-3); WBC/HPF 0-3 HPF (0-3)
[2021-04-07] MEDS ORDERED: Sucralfate 1 GM TAB PO SCH (11:15)
[2021-04-07 11:18] LABS: Amphetamine Not Detected (NotDetected); Benzodiazepine Screen Not Detected (NotDetected); Cocaine Metabolite Screen Detected (NotDetected); Methadone Not Detected (NotDetected); Methamphetamine Not Detected (NotDetected); Opiate Screen Not Detected (NotDetected); Phencyclidine (PCP) Not Detected (NotDetected); THC/Cannabinoid Screen Detected (NotDetected); Tricyclic Screen Detected (NotDetected)
[2021-04-07 11:19] LABS: Barbiturates Screen Not Detected (NotDetected); Medtox Control Line Valid? VALID (VALID); Oxycodone Screen Not Detected (NotDetected)
== END 2021-04-07 11:40 | disposition home or self-care (01) ==
LOC: BURERS 09:22
DX: K29.70 Gastritis, unspecified, without bleeding (principal); E78.00 Pure hypercholesterolemia, unspecified; E11.9 Type 2 diabetes mellitus without complications; I10 Essential (primary) hypertension; F17.210 Nicotine dependence, cigarettes, uncomplicated
CPT/HCPCS: 36415; 80053; 80306; 81003; 81015; 83690; 84484; 85025; 93005; 94760; 96374; J2405

== ENCOUNTER 2021-04-23 10:38 | Emergency (ER) | payer MEDICARE ==
[2021-04-23] MEDS ORDERED: Ondansetron ODT 4 MG TAB ONE (11:11)
[2021-04-23] MEDS ORDERED: Famotidine 20 MG TAB ONE (11:11)
[2021-04-23] MEDS ORDERED: Dicyclomine 20 MG TAB ONE (11:11)
[2021-04-23 12:07] LABS: ALT (SGPT) 19 U/L (8-55); AST (SGOT) 24 U/L (5-34); Albumin 4.4 g/dL (3.4-4.8); Alkaline Phosphatase 113 U/L (40-110); Anion Gap 18 mmol/L (10-20); BUN (Urea Nitrogen) 5 mg/dL (8.4-25.7); Bilirubin, Total 0.6 mg/dL (0.2-1.2); Calc. Creatinine Clearance 0 mL/min (70-130); Calcium 9.7 mg/dL (7.8-10.44); Carbon Dioxide 20 mmol/L (23-31); Chloride 83 mmol/L (98-107); Globulin 3.3 g/dL (2.4-3.5); Glucose 89 mg/dL (80-115); Lipase 22 U/L (8-78); Magnesium 1.7 mg/dL (1.6-2.6); Potassium 3.9 mmol/L (3.5-5.1); Protein, Total 7.7 g/dL (5.8-8.1)
[2021-04-23 12:10] LABS: Hemoglobin 12.7 g/dL (14.0-18.0); Mean Corpuscular HGB CONC 34.7 g/dL (32.0-36.0); Mean Corpuscular Volume 83.7 fL (78.0-98.0); Mean Platelet Volume 7.4 fL (7.4-10.4); Platelet Count 279 thou/uL (130-400); RBC Distribution Width 12.1 % (11.5-14.5); Red Blood Cell (RBC) Count 4.37 mill/uL (4.70-6.10); Sodium 117 mmol/L (136-145); White Blood Cell (WBC) Count 5.2 thou/uL (4.8-10.8)
[2021-04-23 12:14] LABS: Band 4 % (5-11); Lymphocytes 16 % (21-51); MDiff Complete? YES; Monocytes 12 % (0-10); Neutrophil 55 % (42-75); Reactive Lymphocytes 12 % (0-10); Toxic Granulation SLIGHT; Vacuoles SLIGHT
[2021-04-23] MEDS ORDERED: Morphine 4 MG/ML VIAL ONE (12:41)
[2021-04-23 14:20] LABS: Acetaminophen Less than 6.0 mcg/mL (10.0-30.0); Alcohol Less than 10 mg/dL (Less than 10); CK (CPK) 440 U/L (30-200); Salicylate Less than 8.0 mg/dL (15.0-30.0)
[2021-04-23 14:28] LABS: Bilirubin Negative (Negative); Blood, Urine Trace (Negative); Clarity Clear (Clear); Glucose, Urine (Dipstick) Negative (Negative); Ketone, Urine 15 mg/dL (Negative); Leukocyte Negative (Negative); Nitrite Negative (Negative); Protein, Urine (Dipstick) Negative (Neg-Trace); Urobilinogen 0.2 mg/dL (Less than 2)
[2021-04-23 14:29] LABS: Specific Gravity, Urine 1.002 (1.002-1.036)
[2021-04-23 14:31] LABS: Bacteria/HPF Rare-Few HPF (None Seen); RBC/HPF None Seen HPF (0-3); Squamous Epithelial 0-3 HPF (0-3); WBC/HPF None Seen HPF (0-3)
[2021-04-23 14:36] LABS: Amphetamine Not Detected (NotDetected); Barbiturates Screen Not Detected (NotDetected); Benzodiazepine Screen Not Detected (NotDetected); Cocaine Metabolite Screen Detected (NotDetected); Medtox Control Line Valid? VALID (VALID); Methadone Not Detected (NotDetected); Methamphetamine Not Detected (NotDetected); Opiate Screen Detected (NotDetected); Oxycodone Screen Not Detected (NotDetected); Phencyclidine (PCP) Not Detected (NotDetected); THC/Cannabinoid Screen Not Detected (NotDetected); Tricyclic Screen Not Detected (NotDetected)
[2021-04-23] MEDS ORDERED: Ketorolac Tromethamine 30 MG/ML VIAL ONE (14:45)
[2021-04-23] MEDS ORDERED: Magnesium 2 GM/50 ML BAG (IN WATER) ONE (14:45)
== END 2021-04-23 16:00 | disposition short-term general hospital (02) ==
LOC: BURERS 10:38
DX: E87.1 Hypo-osmolality and hyponatremia (principal); R45.850 Homicidal ideations; R45.851 Suicidal ideations; R10.12 Left upper quadrant pain; R10.13 Epigastric pain; E11.9 Type 2 diabetes mellitus without complications; K58.9 Irritable bowel syndrome, unspecified; I10 Essential (primary) hypertension; G40.909 Epilepsy, unspecified, not intractable, without status epilepticus; F17.210 Nicotine dependence, cigarettes, uncomplicated; Z85.51 Personal history of malignant neoplasm of bladder; Z85.238 Personal history of other malignant neoplasm of thymus
CPT/HCPCS: 71045; 80053; 80306; 80307; 81003; 81015; 82550; 83690; 83735; 84484; 85025; 93005; 96365; 96375; J1885; J2270; J3475; Q0162

== ENCOUNTER 2021-05-29 15:29 | Emergency (ER) | payer MEDICARE ==
[2021-05-29] MEDS ORDERED: Famotidine In NaCl 20 mg/50 ml Premix Bag ONE (16:05)
[2021-05-29] MEDS ORDERED: Ondansetron PF 4 MG/2 ML Vial ONE ×2 (16:05→19:33)
[2021-05-29] MEDS ORDERED: Ondansetron ODT 4 MG TAB ONE (16:15)
[2021-05-29] MEDS ORDERED: Fentanyl 100 MCG/2 ML VIAL ONE ×3 (16:28→22:18)
[2021-05-29 16:39] LABS: #Basophils 0.1 thou/uL (0.0-0.2); #Lymphocytes 2.9 thou/uL (1.20-3.40); #Monocytes 0.9 thou/uL (0.11-0.59); #Neutrophils 10.3 thou/uL (1.40-6.50); %Basophils 0.8 % (0.0-1.0); %Eosinophils 0.2 % (0.0-10.0); %Lymphocytes 20.4 % (21.0-51.0); %Monocytes 6.1 % (0.0-10.0); %Neutrophils 72.6 % (42.0-75.0); Hemoglobin 13.7 g/dL (14.0-18.0); Mean Corpuscular HGB CONC 34.1 g/dL (32.0-36.0); Mean Corpuscular Hemoglobin 28.8 pg (27.0-31.0); Mean Corpuscular Volume 84.4 fL (78.0-98.0); Mean Platelet Volume 7.7 fL (7.4-10.4); Platelet Count 276 thou/uL (130-400); RBC Distribution Width 12.9 % (11.5-14.5); Red Blood Cell (RBC) Count 4.76 mill/uL (4.70-6.10); White Blood Cell (WBC) Count 14.1 thou/uL (4.8-10.8)
[2021-05-29] MEDS ORDERED: Glycopyrrolate 0.4 MG/ 2 ML VIAL ONE (16:55)
[2021-05-29 16:56] LABS: ALT (SGPT) 16 U/L (8-55); AST (SGOT) 16 U/L (5-34); Albumin 4.5 g/dL (3.4-4.8); Alkaline Phosphatase 138 U/L (40-110); Anion Gap 20 mmol/L (10-20); BUN (Urea Nitrogen) 8 mg/dL (8.4-25.7); Bilirubin, Total 0.7 mg/dL (0.2-1.2); Calc. Creatinine Clearance 0 mL/min (70-130); Calcium 10.4 mg/dL (7.8-10.44); Carbon Dioxide 20 mmol/L (23-31); Chloride 96 mmol/L (98-107); Globulin 3.6 g/dL (2.4-3.5); Glucose 117 mg/dL (80-115); Lipase 61 U/L (8-78); Potassium 3.6 mmol/L (3.5-5.1); Protein, Total 8.1 g/dL (5.8-8.1); Sodium 132 mmol/L (136-145)
[2021-05-29] MEDS ORDERED: Thiamine HCl 200 MG/2 ML VIAL ONE (18:06)
[2021-05-29 18:18] LABS: Acetaminophen Less than 6.0 mcg/mL (10.0-30.0); Alcohol Less than 10 mg/dL (Less than 10); Salicylate Less than 8.0 mg/dL (15.0-30.0)
[2021-05-29 18:42] LABS: Bilirubin Negative (Negative); Blood, Urine Trace (Negative); Clarity Clear (Clear); Glucose, Urine (Dipstick) Negative (Negative); Ketone, Urine 15 mg/dL (Negative); Leukocyte Negative (Negative); Nitrite Negative (Negative); Protein, Urine (Dipstick) Negative (Neg-Trace); Urobilinogen 0.2 mg/dL (Less than 2)
[2021-05-29 18:46] LABS: Bacteria/HPF None Seen HPF (None Seen); Mucous/LPF None Seen LPF (<2+); RBC/HPF 0-3 HPF (0-3); Squamous Epithelial None Seen HPF (0-3); WBC/HPF None Seen HPF (0-3)
[2021-05-29 18:50] LABS: Amphetamine Not Detected (NotDetected); Barbiturates Screen Not Detected (NotDetected); Benzodiazepine Screen Detected (NotDetected); Cocaine Metabolite Screen Not Detected (NotDetected); Methadone Not Detected (NotDetected); Methamphetamine Not Detected (NotDetected); Opiate Screen Not Detected (NotDetected); Oxycodone Screen Not Detected (NotDetected); Phencyclidine (PCP) Not Detected (NotDetected); THC/Cannabinoid Screen Not Detected (NotDetected); Tricyclic Screen Detected (NotDetected)
[2021-05-29 18:51] LABS: Medtox Control Line Valid? VALID (VALID)
== END 2021-05-30 06:51 | disposition short-term general hospital (02) ==
LOC: BURERS 15:29
DX: K52.9 Noninfective gastroenteritis and colitis, unspecified (principal); F10.10 Alcohol abuse, uncomplicated; F32.9 Major depressive disorder, single episode, unspecified; R45.851 Suicidal ideations; E78.00 Pure hypercholesterolemia, unspecified; I10 Essential (primary) hypertension; E11.9 Type 2 diabetes mellitus without complications; F17.210 Nicotine dependence, cigarettes, uncomplicated; G40.909 Epilepsy, unspecified, not intractable, without status epilepticus
CPT/HCPCS: 71045; 74177; 80053; 80306; 80307; 81003; 81015; 83690; 84443; 84484; 85025; 93005; 94760; 96365; 96375; 96376; J2405; J3010; J3411; Q0162; Q9967

== ENCOUNTER 2021-08-09 02:46 | Emergency (ER) | payer MEDICARE ==
[2021-08-09] MEDS ORDERED: Iopamidol 370 76% 100 ML VIAL FS ONE (02:47)
[2021-08-09] MEDS ORDERED: Ondansetron PF 4 MG/2 ML Vial ONE (02:57)
[2021-08-09] MEDS ORDERED: Pantoprazole 40 MG VIAL ONE (02:57)
[2021-08-09 04:01] LABS: ALT (SGPT) 24 U/L (8-55); AST (SGOT) 21 U/L (5-34); Albumin 4.9 g/dL (3.4-4.8); Alkaline Phosphatase 146 U/L (40-110); Anion Gap 21 mmol/L (10-20); BUN (Urea Nitrogen) 12 mg/dL (8.4-25.7); Bilirubin, Total 0.4 mg/dL (0.2-1.2); Calc. Creatinine Clearance 0 mL/min (70-130); Carbon Dioxide 28 mmol/L (23-31); Chloride 95 mmol/L (98-107); Glucose 182 mg/dL (80-115); Lipase 20 U/L (8-78); Potassium 4.1 mmol/L (3.5-5.1); Protein, Total 8.9 g/dL (5.8-8.1); Sodium 140 mmol/L (136-145)
[2021-08-09 04:21] LABS: Mean Corpuscular Volume 82.5 fL (78.0-98.0); Mean Platelet Volume 6.4 fL (7.4-10.4); Platelet Count 694 thou/uL (130-400); RBC Distribution Width 12.4 % (11.5-14.5)
[2021-08-09] MEDS ORDERED: diphenhydrAMINE 50 MG/ML VIAL ONE (04:29)
[2021-08-09] MEDS ORDERED: Haloperidol Lactate 5 MG/ML VIAL ONE (04:29)
[2021-08-09] MEDS ORDERED: Lidocaine Viscous Sol 2% 15 ml UD Cup ONE (04:30)
[2021-08-09] MEDS ORDERED: Mag-Al Plus 1200 MG/1200 MG/120 MG/30 ML UDCUP ONE (04:30)
[2021-08-09 04:46] LABS: Band 5 % (5-11); Eosinophils 1 % (0-10); Lymphocytes 16 % (21-51); MDiff Complete? YES; Monocytes 6 % (0-10); Neutrophil 72 % (42-75); Platelet Morphology Comment Appears Increased; RBC Morphology Normal
[2021-08-09] MEDS ORDERED: Acetaminophen 500 MG TAB ONE (05:51)
[2021-08-09] MEDS ORDERED: diphenhydrAMINE 25 MG CAP ONE (06:03)
== END 2021-08-09 06:10 | disposition home or self-care (01) ==
LOC: BURERS 02:46
DX: K29.70 Gastritis, unspecified, without bleeding (principal); E11.9 Type 2 diabetes mellitus without complications; I10 Essential (primary) hypertension; K58.9 Irritable bowel syndrome, unspecified
CPT/HCPCS: 71045; 74177; 80053; 83690; 84484; 85025; 93005; 96374; 96375; C9113; J1200; J1630; J2405; Q9967

== ENCOUNTER 2021-08-26 17:01 | Emergency (ER) | payer MEDICARE ==
[2021-08-26 18:21] LABS: #Basophils 0.1 thou/uL (0.0-0.2); #Eosinphils 0.1 thou/uL (0.0-0.7); #Lymphocytes 2.5 thou/uL (1.20-3.40); #Monocytes 0.5 thou/uL (0.11-0.59); #Neutrophils 2.2 thou/uL (1.40-6.50); %Basophils 2.4 % (0.0-1.0); %Lymphocytes 45.7 % (21.0-51.0); %Monocytes 9.5 % (0.0-10.0); %Neutrophils 40.5 % (42.0-75.0); Hemoglobin 14.3 g/dL (14.0-18.0); Mean Corpuscular HGB CONC 33.3 g/dL (32.0-36.0); Mean Corpuscular Hemoglobin 27.9 pg (27.0-31.0); Mean Corpuscular Volume 83.9 fL (78.0-98.0); Mean Platelet Volume 7.6 fL (7.4-10.4); Platelet Count 241 thou/uL (130-400); RBC Distribution Width 12.7 % (11.5-14.5); Red Blood Cell (RBC) Count 5.14 mill/uL (4.70-6.10); White Blood Cell (WBC) Count 5.4 thou/uL (4.8-10.8)
[2021-08-26 18:35] LABS: ALT (SGPT) 15 U/L (8-55); Acetaminophen Less than 6.0 mcg/mL (10.0-30.0); Albumin 4.7 g/dL (3.4-4.8); Alcohol Less than 10 mg/dL (Less than 10); Alkaline Phosphatase 107 U/L (40-110); Anion Gap 18 mmol/L (10-20); BUN (Urea Nitrogen) 11 mg/dL (8.4-25.7); Bilirubin, Total 0.3 mg/dL (0.2-1.2); Calc. Creatinine Clearance 0 mL/min (70-130); Calcium 9.9 mg/dL (7.8-10.44); Carbon Dioxide 20 mmol/L (23-31); Chloride 100 mmol/L (98-107); Globulin 4.2 g/dL (2.4-3.5); Glucose 91 mg/dL (80-115); Potassium 4.2 mmol/L (3.5-5.1); Protein, Total 8.9 g/dL (5.8-8.1); Salicylate Less than 8.0 mg/dL (15.0-30.0); Sodium 134 mmol/L (136-145)
[2021-08-26] MEDS ORDERED: Morphine 4 MG/ML VIAL ONE ×2 (18:38→20:58)
[2021-08-26 19:58] LABS: AST (SGOT) 16 U/L (5-34)
[2021-08-26 20:13] LABS: Amphetamine Not Detected (NotDetected); Barbiturates Screen Not Detected (NotDetected); Benzodiazepine Screen Not Detected (NotDetected); Cocaine Metabolite Screen Not Detected (NotDetected); Methadone Not Detected (NotDetected); Methamphetamine Not Detected (NotDetected); Opiate Screen Detected (NotDetected); Oxycodone Screen Not Detected (NotDetected); Phencyclidine (PCP) Not Detected (NotDetected); THC/Cannabinoid Screen Detected (NotDetected); Tricyclic Screen Not Detected (NotDetected)
[2021-08-26 20:14] LABS: Medtox Control Line Valid? VALID (VALID)
[2021-08-26 23:24] LABS: SARS-CoV-2 NAA Rapid Test Not Detected (NotDetected)
[2021-08-27] MEDS ORDERED: Amlodipine 10 MG TAB PO SCH ×2 (00:15→01:00)
== END 2021-08-27 04:07 ==
LOC: BURERS 17:01
DX: R45.851 Suicidal ideations (principal); R45.850 Homicidal ideations; R10.12 Left upper quadrant pain; R10.33 Periumbilical pain; G89.29 Other chronic pain; I10 Essential (primary) hypertension; E11.9 Type 2 diabetes mellitus without complications; E78.00 Pure hypercholesterolemia, unspecified; Z20.822 Contact with and (suspected) exposure to COVID-19; Z87.19 Personal history of other diseases of the digestive system; Z85.51 Personal history of malignant neoplasm of bladder; Z85.238 Personal history of other malignant neoplasm of thymus; Z79.84 Long term (current) use of oral hypoglycemic drugs; Z79.899 Other long term (current) drug therapy
CPT/HCPCS: 71045; 74177; 80053; 80306; 80307; 83880; 84484; 85025; 93005; 96374; 96376; 99285; U0002; 36415; J2270

== ENCOUNTER 2025-05-24 13:30 | Emergency (ER) | payer OTHER ==
[2025-05-24 14:36] LABS: Hematocrit 35.9 % (42.0-52.0); Hemoglobin 13.6 g/dL (14.0-18.0); Mean Corpuscular Hemoglobin 28.7 pg (27.0-31.0); Mean Corpuscular Volume 75.9 fl (78.0-98.0); Platelet Count 229 10x3/uL (130-400); Red Blood Cell (RBC) Count 4.73 mill/uL (4.70-6.10); White Blood Cell (WBC) Count 4.9 10x3/uL (4.8-10.8)
[2025-05-24 14:50] LABS: ALT (SGPT) 9 U/L (Less than 45); AST (SGOT) 15 U/L (11-34); Albumin 4.2 g/dL (3.1-4.5); Alkaline Phosphatase 109 U/L (40-110); Anion Gap 16 mmol/L (10-20); BUN (Urea Nitrogen) 12 mg/dL (8.4-25.7); Bilirubin, Total 0.3 mg/dL (0.3-1.2); Calc. Creatinine Clearance 0 mL/min (70-130); Calcium 9.3 mg/dL (7.8-10.44); Carbon Dioxide 21 mmol/L (23-31); Chloride 104 mmol/L (98-107); Globulin 3.0 g/dL (2.4-3.5); Glucose 110 mg/dL (80-115); Lipase 42 U/L (8-78); Potassium 4.1 mmol/L (3.5-5.1); Sodium 137 mmol/L (136-145)
[2025-05-24] MEDS ORDERED: HYDROcodone/Acetaminophen 10/325 mg Tablet ONE (15:00)
[2025-05-24 15:28] LABS: MDiff Complete? YES
[2025-05-24] MEDS ORDERED: Lidocaine Viscous Sol 2% 15 ml UD Cup ONE (15:50)
[2025-05-24] MEDS ORDERED: Mag-Al Plus 1200/1200/120 MG (30 mL) UDCUP ONE (15:50)
[2025-05-24 16:02] LABS: Acetaminophen Less than 10 mcg/mL (Less than 10); Salicylate Less than 8.0 mg/dL (Less than 8.0)
[2025-05-24 16:12] LABS: Glucose, Urine (Dipstick) Negative (Negative); Leukocyte Negative (Negative); Protein, Urine (Dipstick) Negative (Neg-Trace); Specific Gravity, Urine 1.015 (1.005-1.030)
[2025-05-24 16:16] LABS: Bacteria/HPF 1+ HPF (None Seen); CAUTI Indications for Culture Dysuria,urgency,freq; RBC/HPF None Seen HPF (0-3); WBC/HPF 0-3 HPF (0-3)
[2025-05-24 16:17] LABS: Urine Culture Reflex No No
[2025-05-24 16:23] LABS: Cocaine Metabolite Screen PRELIM POSITIVE (Negative); THC/Cannabinoid Screen Negative (Negative); Tricyclic Screen PRELIM POSITIVE (Negative)
== END 2025-05-24 21:25 ==
LOC: BURERS 13:30
DX: R45.851 Suicidal ideations (principal); I11.0 Hypertensive heart disease with heart failure; I50.9 Heart failure, unspecified; J44.9 Chronic obstructive pulmonary disease, unspecified; E11.9 Type 2 diabetes mellitus without complications
CPT/HCPCS: 36415; 80053; 80306; 80307; 81001; 83690; 84443; 85025; 99285